=== PATIENT | male | born 1930 | race Caucasian/White ===

== ENCOUNTER 2017-04-21 19:42 | Inpatient (IN) | payer BC, OTHER ==
--- NOTE | 2017-04-21 19:50 | PDOC ---
Attending Attestation - Resident Resident Name: Abebe Martinez
[2017-04-21] MEDS ORDERED: morphine CARPU-JECT 4 MG/1 ML DISP.SYRIN IVPUSH ONE (20:24)
[2017-04-21] MEDS ORDERED: SODIUM CHLORIDE 0.9% 1000 ML INFUS.BAG IV ONE (20:24)
[2017-04-21] MEDS ORDERED: MORPHINE SULFATE 10 MG/1 ML *VIAL ONE (20:37)
[2017-04-21 20:41] LABS: HEMATOCRIT 43.6 % (35.4-49); HEMOGLOBIN 14.7 GM/dL (11.7-16.9); MCHC 33.6 g/dl (32.0-35.9); MEAN CELL VOLUME 101.2 fl (80-96); MEAN PLT VOLUME 9.4 fl (7.5-11.1); PLATELET COUNT 110 K/MM3 (134-434); RBC 4.31 M/mm3 (4.00-5.60); RDW 15.2 % (11.9-15.9); WHITE BLOOD COUNT 14.6 K/mm3 (4.0-10.0)
--- NOTE | 2017-04-21 20:58 | PDOC ---
History of Present Illness - General Chief Complaint: Weakness Stated Complaint: WEAKNESS Time Seen by Provider: 04/21/17 19:50 History Source: Patient, Family (Son at bedside) Exam Limitations: No Limitations - History of Present Illness Initial Comments: 04/21/17 20:53 The patient is an 86M with a PMH of a-fib on coumadin, HTN, HLD, and recently diagnosed stage 4 lung CA who presents with gradual onset of weakness. The patient was diagnosed with lung CA on 03/30/17. According to the son, he has lost 14 pounds since his last doctor's appointment in November. Recently, he has had decreased appetite and generalized weakness. He has not been able to eat and feels like he can no longer ambulate. Past History - Past Medical History Allergies/Adverse Reactions: Allergies Allergy/AdvReac Type Severity Reaction Status Date / Time No Known Allergies Allergy Verified 10/13/14 19:29 Home Medications: Ambulatory Orders Aspirin [Aspirin EC] 81 mg PO DAILY 10/13/14 Atorvastatin Ca [Lipitor] 20 mg PO HS 10/13/14 Folic Acid - 1 mg PO DAILY 10/13/14 Ramipril [Altace] 2.5 mg PO DAILY 10/13/14 Nabumetone [Relafen -] 750 mg PO DAILY 10/14/14 Acetaminophen [Tylenol .Regular Strength -] 650 mg PO Q6H PRN #0 tablet Warfarin Sodium [Coumadin] 5 mg PO HS 30 Days tablet 10/16/14 Cardiac Disorders: Yes (cardiac stent) COPD: No HTN: Yes Hypercholesterolemia: Yes - Immunization History Immunization Up to Date: Yes - Suicide/Smoking/Psychosocial Hx Smoking History: Former smoker Have you smoked in the past 12 months: No Number of Cigarettes Smoked Daily: 2 Information on smoking cessation initiated: No 'Breaking Loose' booklet given: 10/14/14 Hx Alcohol Use: Yes (occasional wine, no hard liquor) Drug/Substance Use Hx: No Substance Use Type: None Review of Systems - Review of Systems Able to Perform ROS?: Yes Is the patient limited Burkinan proficient: No Constitutional: Yes: Weakness. No: Chills, Fever HEENTM: No: Eye Pain, Blurred Vision, Double Vision Respiratory: No: Cough, Shortness of Breath Cardiac (ROS): No: Chest Pain, Lightheadedness, Palpitations ABD/GI: No: Nausea, Vomiting : No: Burning, Dysuria Musculoskeletal: No: Back Pain, Muscle Pain Integumentary: No: Erythema, Rash, Sweating Neurological: Yes: Weakness. No: Headache, Numbness, Tingling *Physical Exam - Vital Signs Last Vital Signs Temp Pulse Resp BP Pulse Ox 97.1 F L 125 H 28 H 149/108 93 L 04/21/17 19:55 04/21/17 19:55 04/21/17 19:55 04/21/17 19:55 04/21/17 19:55 - Physical Exam General Appearance: Yes: Thin. No: Appropriately Dressed, Apparent Distress HEENT: positive: Normal Voice, Hearing Grossly Normal Neck: negative: Tender, Rigidity Respiratory/Chest: positive: Lungs Clear, Normal Breath Sounds. negative: Chest Tender Cardiovascular: positive: Regular Rhythm, Regular Rate, S1, S2. negative: Diastolic Murmur, Systolic Murmur Gastrointestinal/Abdominal: positive: Flat, Soft. negative: Tender Extremity: negative: Coldness, Cyanosis, Swelling, Erythema Integumentary: positive: Dry, Warm. negative: Erythema, Clammy, Diaphoresis, Hives Neurologic: positive: Fully Oriented, Alert, Normal Mood/Affect, Normal Response. negative: Motor Strength 5/5, Abnormal Cranial NS, EOM Palsy ED Treatment Course - LABORATORY CBC & Chemistry Diagram: 04/25/17 06:15 04/25/17 06:15 - ADDITIONAL ORDERS Additional order review: 04/21/17 20:32 RBC 4.31 D MCV 101.2 H MCHC 33.6 RDW 15.2 MPV 9.4 D Neutrophils % No Result Required. Lymphocytes % No Result Required. - RADIOLOGY Radiology Studies Ordered: Category Date Time Status CHEST X-RAY PORTABLE* [RAD] Stat Radiology 04/21/17 20:24 Ordered - Medications Given in the ED: ED Medications Discontinued Medications Generic Name Dose Route Start Last Admin Trade Name Freq PRN Reason Stop Dose Admin Morphine Sulfate 2 mg 04/21/17 20:24 04/21/17 20:44 Morphine Injection - IVPUSH 04/21/17 20:25 2 mg ONCE ONE Administration Sodium Chloride 500 ml 04/21/17 20:24 04/21/17 20:44 Normal Saline - IV 04/21/17 20:25 500 ml ONCE ONE Administration Medical Decision Making - Medical Decision Making 04/21/17 23:47 The patient is an 86M who was recently dx with lung ca with mets who presents with diffuse weakness that has a gradual onset. I am concerned for mets to the brain, weakness 2/2 to decreased appetite, and failure to thrive. Dr. Ordonez has accepted admission for a tele bed. Will give 5 cardizem for HR control. DNR/DNI signed. *DC/Admit/Observation/Transfer Diagnosis at time of Disposition: Lung cancer, primary, with metastasis from lung to other site Qualifiers: Laterality: unspecified laterality Qualified Code(s): C34.90 - Malignant neoplasm of unspecified part of unspecified bronchus or lung - Discharge Dispostion Condition at time of disposition: Stable Admit: Yes - Referrals - Patient Instructions - Post Discharge Activity
[2017-04-21 20:59] LABS: ANION GAP 13 (8-16); BILIRUBIN,TOTAL 5.3 mg/dL (0.2-1.0); BLOOD UREA NITROGEN 69 mg/dL (7-18); CALCIUM 9.9 mg/dL (8.5-10.1); CHLORIDE 101 mmol/L (98-107); CO2 21 mmol/L (21-32); CREATININE 0.9 mg/dL (0.7-1.3); GLUCOSE,RANDOM 101 mg/dL (74-106); POTASSIUM 5.1 mmol/L (3.5-5.1); SGOT/AST 312 U/L (15-37); SGPT/ALT 288 U/L (12-78); SODIUM 135 mmol/L (136-145); TOT PROT 6.6 g/dl (6.4-8.2)
[2017-04-21 21:00] LABS: ALK PHOS 983 U/L (45-117)
[2017-04-21 21:34] LABS: PLATELET ESTIMATE SLT DECREASE
[2017-04-21 22:16] LABS: PROTHROMBIN TIME (PATIENT) 106.4 SEC (9.98-11.88)
[2017-04-21 22:17] LABS: INR 9.42 (0.82-1.09)
[2017-04-21] MEDS ORDERED: dilTIAZem HCL 50 MG/10 ML - 10 ML VIAL IVPUSH ONE (23:46)
--- NOTE | 2017-04-22 00:12 | PN ---
Teaching Attending Note Name of Resident: Shaylee Velázquez ATTENDING PHYSICIAN STATEMENT I saw and evaluated the patient. I reviewed the resident's note and discussed the case with the resident. I agree with the resident's findings and plan as documented. SUBJECTIVE: 84 M with Pmhx. of HTN, s/p Stent, Afib on Coumadin, tobacco abuse, Metastatic Lung Ca (not on any treatment) who presents with weakness and decreased Po intake. States he has not had bx. of his neck mass yet. Notes weight loss over course of month (unknown amt). States looking at food makes him nausous. Also notes weakness in bilateral Lower extremities. No chest pain, pressure or shortness of breath. OBJECTIVE: Physical: VS: Vital Signs Period Temp Pulse Resp BP Sys/Roach Pulse Ox Last 24 Hr 97.1 F 125 28 149/108 93 GEN: Cachetic,NAD, resting in bed, AA0X3 HEENT: NCAT,PERRL, throat without erythema or exudates, 5X4 cm hard R. Clavicular LN CARD: RRR S2, S2 RESP: CTAB ABD: BSx4, NTD to palpation EXT: - C/C/E MS +4/5 UE, MS 3/5 Bilateral LE RECTAL: Deferred by pt. CBCD WBC 14.6 K/mm3 (4.0-10.0) H D 04/21/17 20:32 RBC 4.31 M/mm3 (4.00-5.60) D 04/21/17 20:32 Hgb 14.7 GM/dL (11.7-16.9) D 04/21/17 20:32 Hct 43.6 % (35.4-49) D 04/21/17 20:32 MCV 101.2 fl (80-96) H 04/21/17 20:32 MCHC 33.6 g/dl (32.0-35.9) 04/21/17 20:32 RDW 15.2 % (11.9-15.9) 04/21/17 20:32 Plt Count 110 K/MM3 (134-434) L D 04/21/17 20:32 MPV 9.4 fl (7.5-11.1) D 04/21/17 20:32 CMP Sodium 135 mmol/L (136-145) L 04/21/17 20:32 Potassium 5.1 mmol/L (3.5-5.1) D 04/21/17 20:32 Chloride 101 mmol/L (98-107) 04/21/17 20:32 Carbon Dioxide 21 mmol/L (21-32) D 04/21/17 20:32 Anion Gap 13 (8-16) 04/21/17 20:32 BUN 69 mg/dL (7-18) H D 04/21/17 20:32 Creatinine 0.9 mg/dL (0.7-1.3) D 04/21/17 20:32 Creat Clearance w eGFR > 60 (>60) 04/21/17 20:32 Random Glucose 101 mg/dL (74-106) 04/21/17 20:32 Calcium 9.9 mg/dL (8.5-10.1) 04/21/17 20:32 Total Bilirubin 5.3 mg/dL (0.2-1.0) H D 04/21/17 20:32 AST 312 U/L (15-37) H D 04/21/17 20:32 ALT 288 U/L (12-78) H D 04/21/17 20:32 Alkaline Phosphatase 983 U/L (45-117) H D 04/21/17 20:32 Total Protein 6.6 g/dl (6.4-8.2) 04/21/17 20:32 Albumin 3.0 g/dl (3.4-5.0) L 04/21/17 20:32 CARDIAC ENZYMES Creatine Kinase 341 IU/L (39-308) H 04/21/17 20:32 Troponin I 0.03 ng/ml (0.00-0.05) D 04/21/17 20:32 CXR-Consolidative Opacity in RL base c/w pneumonia? Neoplasia Home Medications Medication Instructions Recorded Aspirin [Aspirin EC] 81 mg PO DAILY 10/13/14 Atorvastatin Ca [Lipitor] 20 mg PO HS 10/13/14 Folic Acid - 1 mg PO DAILY 10/13/14 Ramipril [Altace] 2.5 mg PO DAILY 10/13/14 Nabumetone [Relafen -] 750 mg PO DAILY 10/14/14 Acetaminophen [Tylenol .Regular 650 mg PO Q6H PRN #0 tablet 10/16/14 Strength -] Warfarin Sodium [Coumadin] 5 mg PO HS Days tablet 10/16/14 ASSESSMENT AND PLAN: 84 M with Pmhx. of HTN, s/p Stent, Afib on Coumadin, tobacco abuse, Metastatic Lung Ca (not on any treatment) who presents with weakness and decreased Po intake. 1.) Acute Hypoxic Respirtatory Failure - STAT ABG - Wells Score 3, but theraputic on Coumadin - 02 NC 2.) Sepsis - Due to Pneumonia - Ceftriaxone/Azithro - [place] Cx - Flu Swab- Negative - IVF - LA - Urine Ags 3.) Weakness - MRI BRAIN W. con - MRI T+L Spine ro compression - B12/ Folate/TSH - Neuro consult 4.) Decreased PO intake - Nutrition consult - Speech & Swallow Eval 5.) Metastatic Lung Ca - Onc. Consult - As outpt. need CTCAP for staging 6.) A-Fib - Hold Coumadin due to Supratheraputic INR - Echo if not done outpt. - C/W Cardizem 7.) Supratheraputic INR - Hold Coumadin - Trend CBC - Repeat Coags 8.) Transaminitis - Possible From Met. Ca 8.) HTN - C/W Home meds 9.) Dvt PPx - Supratheraputic INR Place in Med-Tele
[2017-04-22] MEDS ORDERED: dilTIAZem HCL 125 MG/25 ML - 25 ML VIAL ONE (00:16)
--- NOTE | 2017-04-22 00:39 | HP ---
CHIEF COMPLAINT: progressive weakness x 3 weeks PCP: Dr. Apodaca [facility] HISTORY OF PRESENT ILLNESS: 86 y/o M with PMH afib (on coumadin), HTN, HLD, recent diagnosis stage 4 lung CA (by Dr. Apodaca) who presents to the ED with gradually worsening weakness over the last three weeks. As per pt's son, starting on March 30, pt told him that he was not feeling well after he went to the bank. He had decreased energy and weakness in his upper and lower extremities, and started to have difficulty while ambulating with his walker. During this time, pt had a fourteen pound weight loss and decreased appetite. More recently, over the last two days, pt endorsed dizziness, SOB, intermittent productive cough (yellow sputum, without blood), increased urinary frequency with decreased void volume, brown-red urine and back pain. Denies LOCKHART, fever, night sweats, chills, chest pain, or changes in bowel function. Pt was diagnosed with stage 4 lung CA last week by Dr. Apodaca and had a Chest CT done at [facility]. He had not had a biopsy yet, and does not follow with a registered representative or oncologist yet. ER course was notable for: (1) WBC 14.6, (2) lactic acid 3.3 (3) AST 312, ALT 288, ALP 983 (4) CK 341 (5) INR 9.42 Recent Travel: none PAST MEDICAL HISTORY: afib (on coumadin), HTN, HLD, recent diagnosis stage 4 lung CA (by Dr. 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 Smoking: smoked 60-70 yrs 2 ppd, currently smokes 1-2 cigarettes/day Alcohol: socially Drugs: denies Family History: DM- brother, leg amputation Allergies No Known Allergies Allergy (Verified 10/13/14 19:29) HOME MEDICATIONS: Home Medications Medication Instructions Recorded Aspirin [Aspirin EC] 81 mg PO DAILY 10/13/14 Atorvastatin Ca [Lipitor] 20 mg PO HS 10/13/14 Folic Acid - 1 mg PO DAILY 10/13/14 Ramipril [Altace] 2.5 mg PO DAILY 10/13/14 Nabumetone [Relafen -] 750 mg PO DAILY 10/14/14 Acetaminophen [Tylenol .Regular 650 mg PO Q6H PRN #0 tablet 10/16/14 Strength -] Warfarin Sodium [Coumadin] 5 mg PO HS 30 Days tablet 10/16/14 REVIEW OF SYSTEMS CONSTITUTIONAL: +dizziness Absent: fever, chills, diaphoresis, generalized weakness, malaise, loss of appetite, weight change HEENT: Absent: rhinorrhea, nasal congestion, throat pain, throat swelling, difficulty swallowing, mouth swelling, ear pain, eye pain, visual changes CARDIOVASCULAR: Absent: chest pain, syncope, palpitations, irregular heart rate, lightheadedness , peripheral edema RESPIRATORY: +SOB, cough Absent: dyspnea with exertion, orthopnea, wheezing, stridor, hemoptysis GASTROINTESTINAL: Absent: abdominal pain, abdominal distension, nausea, vomiting, diarrhea, constipation, melena, hematochezia GENITOURINARY: Absent: dysuria, frequency, urgency, hesitancy, hematuria, flank pain, genital pain MUSCULOSKELETAL: +back pain Absent: myalgia, arthralgia, joint swelling, back pain, neck pain SKIN: Absent: rash, itching, pallor HEMATOLOGIC/IMMUNOLOGIC: Absent: easy bleeding, easy bruising, lymphadenopathy, frequent infections ENDOCRINE: +unexplained weight loss Absent: unexplained weight gain, heat intolerance, cold intolerance NEUROLOGIC: Absent: headache, focal weakness or paresthesias, dizziness, unsteady gait, seizure, mental status changes, bladder or bowel incontinence PSYCHIATRIC: Absent: anxiety, depression, suicidal or homicidal ideation, hallucinations. PHYSICAL EXAMINATION Vital Signs - 24 hr 04/21/17 19:55 Temperature 97.1 F L Pulse Rate 125 H Respiratory 28 H Rate Blood Pressure 149/108 O2 Sat by Pulse 93 L Oximetry (%) GENERAL: Cachectic gentleman, awake, alert, and fully oriented, in no acute distress. HEAD: Normal with no signs of trauma. EYES: Pupils equal, round and reactive to light, extraocular movements intact, sclera anicteric, conjunctiva clear. EARS, NOSE, THROAT: Ears normal, nares patent, oropharynx clear without exudates. Dry mucous membranes NECK: Normal range of motion, R sided clavicular lymphadenopathy LUNGS: decreased BS throughout (bases> apices). without wheezing, rhonchi or crackles. decreased inspiratory effort. mild accessory m. usage HEART: irregular rate and rhythm, normal S1 and S2 without murmur, rub or gallop. ABDOMEN: Nondistended, nontender to palpation. Significant hepatomegaly. normoactive bowel sounds, no guarding LOWER EXTREMITIES: 1+ posterior tibial pulses, warm, well-perfused. No calf tenderness. No peripheral edema. NEUROLOGICAL: Cranial nerves II-XII intact. PSYCHIATRIC: positive affect Laboratory Results 04/21/17 04/21/17 04/21/17 20:32 20:32 20:32 WBC 14.6 H D RBC 4.31 D Hgb 14.7 D Hct 43.6 D MCV 101.2 H MCH 34.0 H MCHC 33.6 RDW 15.2 Plt Count 110 L D MPV 9.4 D Neutrophils % No Result Required. Neutrophils % (Manual) 81.0 Band Neutrophils % 6.0 Lymphocytes % No Result Required. Lymphocytes % (Manual) 10.0 Monocytes % (Manual) 2 L Eosinophils % (Manual) 0.0 Basophils % (Manual) 0.0 Metamyelocytes 1 Platelet Estimate Slt decrease Platelet Comment No clumping noted PT with INR 106.40 H INR 9.42 H* D Sodium Alkaline Phosphatase Creatine Kinase 341 H Creatine Kinase Index 0.8 CK-MB (CK-2) 3.038 Troponin I 0.03 D Total Protein 04/21/17 20:32 INR Sodium 135 L Potassium 5.1 D Chloride 101 Carbon Dioxide 21 D Anion Gap 13 BUN 69 H D Creatinine 0.9 D Creat Clearance w eGFR > 60 Random Glucose 101 Calcium 9.9 Total Bilirubin 5.3 H D AST 312 H D ALT 288 H D Alkaline Phosphatase 983 H D Creatine Kinase Total Protein 6.6 Albumin 3.0 L Microbiology 04/22/17 00:30 Nasopharyngeal Swab Influenza Types A,B Antigen (JUDI) - Final 04/22/17 00:30 Nasopharyngeal Swab - Final Blood cx- pending Urine cx- pending EKG -afib with RVR, vent rate 125 bpm, Qtc 474 ms Radio CXR: consolidative opacity in RLL, possible PNA ASSESSMENT/PLAN: 86 y/o M with PMH afib (on coumadin), HTN, HLD, recent diagnosis stage 4 lung CA (by Dr. Apodaca) who presents to the ED with gradually worsening weakness over the last three weeks. Pt admitted to tele for weakness 2/2 lung CA, r/o brain and spine mets #Weakness 2/2 lung CA, r/o brain and spine mets -F/u brain MRI w/contrast -F/u thoracic and lumbar MRI to r/o compression. If compression, may need steroids -F/u B12, Folate, TSH -Neuro Consult- Dr. Cook -Dietary consult- d/t decreased appetite -Speech and swallow consult #Acute hypoxic respiratory failure most likely 2/2 Lung CA, possible PNA -F/u stat ABG -Continue on NC 02 #Metastatic lung CA -recent dx stage 4 lung CA, has not had bx, does not have oncologist -Onc consult- Dr. Silva -CT Chest, abd pelvis for staging #Sepsis 2/2 CAP -leukocytosis 14.6, tachycardic 125HR, tachypneic RR28, lactic acid 3.3 -Started on ceftriaxone 1g IVPB qd, Azithromycin 500mg IVPB qd, to cover for CAP -Pt with prolonged Qtc 474, check EKG in AM before next Azithro dose -F/u urine cx, blood cx, Urine Ag for Legionella #Afib with supratherapeutic INR (9.42) -Holding coumadin -F/u PTT, PT/INR -Lopressor 5mg IVP q4h PRN rate control if HR >110 -Cardio consult- Dr. Álvarez #HTN- controlled -Continue ramipril 2.5mg daily #HLD -Continue lipitor 20mg PO HS #PPX DVT: supratherapeutic INR, SCD's #F/E/N IV NS 75 cc/hr Monitor electrolytes Sodium controlled diet #Dispo Tele monitoring Visit type - Emergency Visit Emergency Visit: Yes ED Registration Date: 04/22/17 Care time: The patient presented to the Emergency Department on the above date and was hospitalized for further evaluation of their emergent condition. - New Patient This patient is new to me today: Yes Date on this admission: 04/22/17 - Critical Care Critical Care patient: No
[2017-04-22] MEDS ORDERED: CEFTRIAXONE 1 G/50 ML PREMIX 50 ML IVPB SCH (01:30)
[2017-04-22] MEDS ORDERED: AZITHROMYCIN IVPB 500 MG in DEXTROSE 5%-WATER - 250 ML IVPB SCH (01:30)
[2017-04-22 01:37] LABS: URINE APPEARANCE CLEAR; URINE BILIRUBIN NEGATIVE (NEGATIVE); URINE BLOOD NEGATIVE (NEGATIVE); URINE COLOR AMBER; URINE GLUCOSE (UA) NEGATIVE (NEGATIVE); URINE KETONE NEGATIVE (NEGATIVE); URINE LEUK ESTERASE NEGATIVE (NEGATIVE); URINE NITRITE NEGATIVE (NEGATIVE); URINE PROTEIN NEGATIVE (NEGATIVE); URINE UROBILINOGEN 4.0 E.U/dl mg/dL (0.2-1.0)
[2017-04-22] MEDS ORDERED: AZITHROMYCIN IVPB 250 ML IVPB ONE (01:47)
[2017-04-22] MEDS ORDERED: ONDANSETRON 4 MG/2 ML VIAL ONE (01:47)
[2017-04-22] MEDS ORDERED: ACETAMINOPHEN INJECTION 100 ML IVPB ONE (01:47)
[2017-04-22] MEDS ORDERED: CEFTRIAXONE 1 GM/50 ML BAG ONE (01:48)
[2017-04-22] MEDS: SODIUM CHLORIDE 1,000 ML IV SCH (01:55)
[2017-04-22 05:19] LABS: ARTERIAL BLD GAS O2 SATURATION 94.6 % (90-98.9); ARTERIAL BLOOD GAS BASE EXCESS -1.4 meq/l (-2-2); ARTERIAL BLOOD GAS PCO2 32.6 mmHg (35-45); ARTERIAL BLOOD GAS PO2 75.1 mmHg (68-100); ARTERIAL BLOOD GAS pH 7.44 (7.35-7.45)
[2017-04-22 05:20] LABS: ALLENS TEST POSITIVE
[2017-04-22 07:58] LABS: HEMATOCRIT 40.7 % (35.4-49); HEMOGLOBIN 13.3 GM/dL (11.7-16.9); MCH 33.2 pg (25.7-33.7); MCHC 32.6 g/dl (32.0-35.9); MEAN CELL VOLUME 101.9 fl (80-96); MEAN PLT VOLUME 9.2 fl (7.5-11.1); PLATELET COUNT 96 K/MM3 (134-434); RBC 3.99 M/mm3 (4.00-5.60); RDW 15.5 % (11.9-15.9); WHITE BLOOD COUNT 15.9 K/mm3 (4.0-10.0)
[2017-04-22 08:20] LABS: PROTHROMBIN TIME (PATIENT) 98.6 SEC (9.98-11.88)
[2017-04-22 08:43] LABS: CHLORIDE 99 mmol/L (98-107); POTASSIUM 4.9 mmol/L (3.5-5.1); SODIUM 135 mmol/L (136-145)
[2017-04-22 08:48] LABS: ANION GAP 13 (8-16); BLOOD UREA NITROGEN 67 mg/dL (7-18); CALCIUM 9.7 mg/dL (8.5-10.1); CO2 23 mmol/L (21-32); GLUCOSE,RANDOM 119 mg/dL (74-106)
[2017-04-22] MEDS: FOLIC ACID 1 MG TABLET (FP) PO SCH (09:16)
[2017-04-22] MEDS: RAMIPRIL 2.5 MG CAPSULE (FP) PO SCH (09:16)
[2017-04-22 09:24] LABS: INR 8.73 (0.82-1.09)
[2017-04-22] MEDS ORDERED: NABUMETONE 750 MG TABLET PO SCH (10:00)
[2017-04-22] MEDS: ASPIRIN COATED 81 MG TABLET.EC PO SCH (10:28)
--- NOTE | 2017-04-22 10:32 | CONSULT ---
Admitting History and Physical - Primary Care Physician PCP: Joanne Caldera - Admission History of Present Illness: per emr: 86 y/o M with PMH afib (on coumadin), HTN, HLD, recent diagnosis stage 4 lung CA (by Dr. Apodaca) who presents to the ED with gradually worsening weakness over the last three weeks. As per pt's son, starting on March 30, pt told him that he was not feeling well after he went to the bank. He had decreased energy and weakness in his upper and lower extremities, and started to have difficulty while ambulating with his walker. During this time, pt had a fourteen pound weight loss and decreased appetite. More recently, over the last two days, pt endorsed dizziness, SOB, intermittent productive cough (yellow sputum, without blood), increased urinary frequency with decreased void volume, brown-red urine and back pain. Denies LOCKHART, fever, night sweats, chills, chest pain, or changes in bowel function. Pt was diagnosed with stage 4 lung CA last week by Dr. Apodaca and had a Chest CT done at [facility]. He had not had a biopsy yet, and does not follow with a data entry analyst or oncologist yet. Present smoker. Drinks wine socially. Pt reports onset of dysphagia x 3 weeks ago, coughing while he eats and especially while he drinks. 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 History - Admission Reason For Visit: PRIMARY MALIGNANT NEOPLASM OF LUNG - Diagnostics X-ray: Report Reviewed - General Mental Status: Alert and Oriented (grossly), Awake and Alert, Able to Follow Commands Attention: Intact Ability to Follow Directions: Fair Head/Neck Control: Fair - Hearing Hearing: Functional Hearing Aide: No With Patient: No Speech Evaluation - Communication Primary Language: MAURITANIAN Communication: Yes: Within Normal Limits - Speech Production Able to Make Needs Known: Yes: WNL Intelligibility: Yes: WNL - Speech Characteristics Voice Loudness: Mildly Soft/Quiet Voice Pitch: Yes: Normal Voice Phonatory-based Quality: Yes: Vocal Wetness (intermittent. Aspiration?) Speech Pattern: Normal Speech Clarity: < 100% Nasal Resonance: Normal Articulation: Yes: Precise Rate of Speech: Intact - Language/Auditory Comprehension Observation: Able to respond to yes/no queries: Yes, Comprehends Conversational Speech: Yes, Benefits from Increased Volume of Speech: Yes - Language/Verbal Expression Able to Respond to Simple Queries: Yes: WNL Able to Communicate Wants and Needs: Yes: WNL Functional Communication Status: Yes: WNL - Swallow Evaluation/Bedside Assessment Current Nutritional Intake: Regular, Thin Liquids Oral Secretions: Yes: Tongue Coated (Coated white. Needs mouth care/r/o thrush.) Dentition: Yes: Edentulous Facial Symmetry at Rest: Symmetrical Facial Symmetry on Retraction: Symmetrical Against Resistance Opening: Normal Against Resistance Closing: Normal Pucker Lips: Normal Smile: Normal Lingual Movement: Normal, Symmetric Lingual Speed of Movement: Normal Lingual Movement Strgth Against Opposition: Normal Lingual Movement Characteristics: Normal Velopharyngeal Movement: Normal Laryngeal Movement: Labored,delay initiation Bolus Size: WFL Labial Seal: WFL Chewing: WFL Oral Prep Time: WFL A-P Transit: WFL Pocketing: None Timing of Swallow: Delayed Coughing/Throat Clear: Yes (intermittent, on thin liquid) Recommendations - Speech Evaluation, Impression/Plan Impression: Recent dx of Stage IV Lung Cancer. Coughing on thin liquid x 3 weeks. PNA. Poor appetite. Only wants sips of water. Swallow is delayed but fairly brisk once triggered.Vocal wetness intermittently. Weak. DNR/DNI. Grossly oriented and verbal. - Dysphagia Impressions/Plan Dysphagia Impressions: Ongoing Evaluation, Suspect Aspiration *Silent aspiration: cannot be R/O at bedside Dysphagia Treatment Plan: Small Bites, Chin Tuck/Down, Safe Rate, 1/2 tsp. at a time, Elevate HOB during feed Recommendations: Modified Barium Swallow, Other (Mouth care. r/o Thrush.) - Recommendations Diet Consistency: Dysphagia Minced, 1 - 2 Soft Items Liquids: [place] Thick, Other (Trial single sips of thin water after mouth care, between meals.) Supplement: Magic Cup, Other (Ensure Compact? Family concerned about Vit K level with Coumadin.)
--- NOTE | 2017-04-22 10:57 | EKG ---
Test Reason : Blood Pressure : / mmHG Vent. Rate : 120 BPM Atrial Rate : 136 BPM P-R Int : 000 ms QRS Dur : 094 ms QT Int : 314 ms P-R-T Axes : 000 012 037 degrees QTc Int : 443 ms ATRIAL FIBRILLATION WITH RAPID VENTRICULAR RESPONSE INCOMPLETE RIGHT BUNDLE BRANCH BLOCK NONSPECIFIC ST AND T WAVE ABNORMALITY ABNORMAL ECG WHEN COMPARED WITH ECG OF 21-APR-2017 20:10, T WAVE INVERSION NO LONGER EVIDENT IN LATERAL LEADS Confirmed by NAHEED JEFFERSON, GERSON ([id number]) on 04/22/2017 10:57:18 AM Referred By: Confirmed By:GERSON FARFAN MD
--- NOTE | 2017-04-22 10:59 | EKG ---
Test Reason : Blood Pressure : / mmHG Vent. Rate : 135 BPM Atrial Rate : 113 BPM P-R Int : 000 ms QRS Dur : 090 ms QT Int : 316 ms P-R-T Axes : 000 035 174 degrees QTc Int : 474 ms ATRIAL FIBRILLATION WITH RAPID VENTRICULAR RESPONSE ANTERIOR INFARCT , AGE UNDETERMINED ABNORMAL ECG WHEN COMPARED WITH ECG OF 14-OCT-2014 00:18, ATRIAL FIBRILLATION HAS REPLACED SINUS RHYTHM VENT. RATE HAS INCREASED BY 63 BPM NONSPECIFIC T WAVE ABNORMALITY NOW EVIDENT IN INFERIOR LEADS T WAVE INVERSION NOW EVIDENT IN LATERAL LEADS Confirmed by GERSON FARFAN MD ([id number]) on 04/22/2017 10:59:23 AM Referred By: Confirmed By:GERSON FARFAN MD
[2017-04-22] MEDS: METOPROLOL TARTRATE 5 MG/5 ML VIAL IVPUSH PRN (12:10)
--- NOTE | 2017-04-22 12:25 | PN ---
<Philip Khan - Last Filed: 04/22/17 13:41> Physical Exam: SUBJECTIVE: Patient seen and examined at bedside. Patient's son is in the room with the patient and is answering the majority of the questions. Patient's son states that patient was recently diagnosed with cancer but did not know the stage. He states that he has been week for several months and losing weight ( 15lbs over this time). Reports not eating. Reports shortness of breath over the last 2 days. OBJECTIVE: Vital Signs Period Temp Pulse Resp BP Sys/Roach Pulse Ox Last 24 Hr 97.1 F-98.4 F 109-125 20-28 126-150/64-108 92-98 GENERAL: The patient is awake, alert, and fully oriented, in mild distress HEAD: Normal with no signs of trauma. temporal wasting and maxillary wasting noted. EYES: PERRL, extraocular movements intact, sclera anicteric, conjunctiva clear. No ptosis. NECK: Trachea midline, full range of motion, supple. LUNGS: Bilateral crackles noted on exam - more on the R lower lobe. patient on 2L NC HEART: Patient tachycardic, irregular rhythm, S1, S2 without murmur, rub or gallop. ABDOMEN: hard abdomen palpated in the R upper quadrant, nontender, nondistended , normoactive bowel sounds, no guarding, no rebound, no hepatosplenomegaly, no masses. EXTREMITIES: 2+ pulses, warm, well-perfused, no edema. NEUROLOGICAL: Cranial nerves II through XII grossly intact. slightly slurred speech. gait not observed. PSYCH: Normal mood, normal affect. SKIN: Warm, dry, normal turgor, no rashes or lesions noted Laboratory Results - last 24 hr 04/21/17 04/21/17 04/21/17 20:32 20:32 20:32 WBC 14.6 H D RBC 4.31 D Hgb 14.7 D Hct 43.6 D MCV 101.2 H MCH 34.0 H MCHC 33.6 RDW 15.2 Plt Count 110 L D MPV 9.4 D Neutrophils % No Result Required. Neutrophils % (Manual) 81.0 Band Neutrophils % 6.0 Lymphocytes % No Result Required. Lymphocytes % (Manual) 10.0 Monocytes % (Manual) 2 L Eosinophils % (Manual) 0.0 Basophils % (Manual) 0.0 Metamyelocytes 1 Platelet Estimate Slt decrease Platelet Comment No clumping noted PT with INR 106.40 H INR 9.42 H* D Anticoagulation Therapy Puncture Site ABG pH ABG pCO2 at Pt Temp ABG pO2 at Pt Temp ABG HCO3 ABG O2 Sat (Measured) ABG O2 Content ABG Base Excess Roque Test O2 Delivery Device Oxygen Flow Rate Vent Mode Vent Rate Mechanical Rate Pressure Support Vent Sodium Potassium Chloride Carbon Dioxide Anion Gap BUN Creatinine Creat Clearance w eGFR Random Glucose Lactic Acid Calcium Total Bilirubin AST ALT Alkaline Phosphatase Creatine Kinase 341 H Creatine Kinase Index 0.8 CK-MB (CK-2) 3.038 Troponin I 0.03 D Total Protein Albumin Urine Color Urine Appearance Urine pH Ur Specific [place] Urine Protein Urine Glucose (UA) Urine Ketones Urine Blood Urine Nitrite Urine Bilirubin Urine Urobilinogen Ur Leukocyte Esterase 04/21/17 04/22/17 04/22/17 20:32 01:20 01:20 WBC RBC Hgb Hct MCV MCH MCHC RDW Plt Count MPV Neutrophils % Neutrophils % (Manual) Band Neutrophils % Lymphocytes % Lymphocytes % (Manual) Monocytes % (Manual) Eosinophils % (Manual) Basophils % (Manual) Metamyelocytes Platelet Estimate Platelet Comment PT with INR INR Anticoagulation Therapy Puncture Site ABG pH ABG pCO2 at Pt Temp ABG pO2 at Pt Temp ABG HCO3 ABG O2 Sat (Measured) ABG O2 Content ABG Base Excess Roque Test O2 Delivery Device Oxygen Flow Rate Vent Mode Vent Rate Mechanical Rate Pressure Support Vent Sodium 135 L Potassium 5.1 D Chloride 101 Carbon Dioxide 21 D Anion Gap 13 BUN 69 H D Creatinine 0.9 D Creat Clearance w eGFR > 60 Random Glucose 101 Lactic Acid 3.3 H* Calcium 9.9 Total Bilirubin 5.3 H D AST 312 H D ALT 288 H D Alkaline Phosphatase 983 H D Creatine Kinase Creatine Kinase Index CK-MB (CK-2) Troponin I Total Protein 6.6 Albumin 3.0 L Urine Color Angela Urine Appearance Clear Urine pH 5.0 Ur Specific [place] 1.021 Urine Protein Negative Urine Glucose (UA) Negative Urine Ketones Negative Urine Blood Negative Urine Nitrite Negative Urine Bilirubin Negative Urine Urobilinogen 4.0 e.u/dl Ur Leukocyte Esterase Negative 04/22/17 04/22/17 04/22/17 05:05 07:10 07:10 WBC 15.9 H RBC 3.99 L Hgb 13.3 Hct 40.7 MCV 101.9 H MCH 33.2 MCHC 32.6 RDW 15.5 Plt Count 96 L MPV 9.2 Neutrophils % No Result Required. Neutrophils % (Manual) Band Neutrophils % Lymphocytes % No Result Required. Lymphocytes % (Manual) Monocytes % (Manual) Eosinophils % (Manual) Basophils % (Manual) Metamyelocytes Platelet Estimate Platelet Comment PT with INR 98.60 H INR 8.73 H* Anticoagulation Therapy No Result Required. Puncture Site Right radial ABG pH 7.44 ABG pCO2 at Pt Temp 32.6 L ABG pO2 at Pt Temp 75.1 ABG HCO3 21.5 L ABG O2 Sat (Measured) 94.6 ABG O2 Content 17.5 ABG Base Excess -1.4 Roque Test Positive O2 Delivery Device N/c Oxygen Flow Rate 2lpm Vent Mode No Result Required. Vent Rate No Result Required. Mechanical Rate No Result Required. Pressure Support Vent No Result Required. Sodium Potassium Chloride Carbon Dioxide Anion Gap BUN Creatinine Creat Clearance w eGFR Random Glucose Lactic Acid Calcium Total Bilirubin AST ALT Alkaline Phosphatase Creatine Kinase Creatine Kinase Index CK-MB (CK-2) Troponin I Total Protein Albumin Urine Color Urine Appearance Urine pH Ur Specific [place] Urine Protein Urine Glucose (UA) Urine Ketones Urine Blood Urine Nitrite Urine Bilirubin Urine Urobilinogen Ur Leukocyte Esterase 04/22/17 04/22/17 07:10 07:10 WBC RBC Hgb Hct MCV MCH MCHC RDW Plt Count MPV Neutrophils % Neutrophils % (Manual) Band Neutrophils % Lymphocytes % Lymphocytes % (Manual) Monocytes % (Manual) Eosinophils % (Manual) Basophils % (Manual) Metamyelocytes Platelet Estimate Platelet Comment PT with INR INR Anticoagulation Therapy Puncture Site ABG pH ABG pCO2 at Pt Temp ABG pO2 at Pt Temp ABG HCO3 ABG O2 Sat (Measured) ABG O2 Content ABG Base Excess Roque Test O2 Delivery Device Oxygen Flow Rate Vent Mode Vent Rate Mechanical Rate Pressure Support Vent Sodium 135 L Potassium 4.9 Chloride 99 Carbon Dioxide 23 Anion Gap 13 BUN 67 H Creatinine 1.0 Creat Clearance w eGFR Random Glucose 119 H Lactic Acid Calcium 9.7 Total Bilirubin AST ALT Alkaline Phosphatase Creatine Kinase Creatine Kinase Index CK-MB (CK-2) Troponin I 0.02 D Total Protein Albumin Urine Color Urine Appearance Urine pH Ur Specific [place] Urine Protein Urine Glucose (UA) Urine Ketones Urine Blood Urine Nitrite Urine Bilirubin Urine Urobilinogen Ur Leukocyte Esterase Active Medications Generic Name Dose Route Start Last Admin Trade Name Freq PRN Reason Stop Dose Admin Aspirin 81 mg 04/22/17 10:00 04/22/17 10:28 Ecotrin - PO 81 mg DAILY SUE Administration Atorvastatin Calcium 20 mg 04/22/17 22:00 Lipitor - PO HS SUE Folic Acid 1 mg 04/22/17 10:00 04/22/17 09:16 Folic Acid - PO 1 mg DAILY SUE Administration CEFTRIAXONE 1 G/50 ML PREMIX 50 mls @ 100 mls/hr 04/22/17 01:30 04/22/17 01: 54 Ceftriaxone 1 Gm-D5w Bag IVPB 100 mls/hr HS SUE Administration Sodium Chloride 1,000 mls @ 75 mls/hr 04/22/17 01:30 04/22/17 01:55 Normal Saline - IV 75 mls/hr ASDIR SUE Administration Azithromycin 500 mg/ Dextrose 250 mls @ 250 mls/hr 04/22/17 01:30 04/22/17 01 :55 IVPB 250 mls/hr HS SUE Administration Metoprolol Tartrate 5 mg 04/22/17 01:41 04/22/17 12:10 Lopressor Injection - IVPUSH 5 mg Q4H PRN Administration HYPERTENSION Ramipril 2.5 mg 04/22/17 10:00 04/22/17 09:16 Altace - PO 2.5 mg DAILY SUE Administration EKG -afib with RVR, vent rate 125 bpm, Qtc 474 ms Radio CXR: consolidative opacity in RLL, likely pneumonia ASSESSMENT/PLAN: 86 y/o M with PMH afib (on coumadin), HTN, HLD, recent diagnosis of lung CA ( by Dr. Apodaca) who presents to the ED with gradually worsening weakness over the last three weeks and poor oral intake as well as back pain #Weakness: likely 2/2 metastatic lung CA, r/o brain and spine mets -Brain MRI wasn't able to be performed due to family not knowing type of stents patient has -consult Dr. Silva appreciated -Neuro Consult- Dr. Cook appeciated -Speech and swallow consult for modified barium swallow #Acute hypoxic respiratory failure 2/2 pneumonia: possible pneumonia -ABG normal -Continue on nasal cannula 2 liters -leukocytosis 14.6, tachycardic 125HR, tachypneic RR28, lactic acid 3.3 -continue ceftriaxone and azithromycin -f/u cultures #Atrial fibrillation with supratherapeutic INR (on admission 9.42): improved to 8.73 -Holding coumadin for now -repeat INR in AM -Lopressor 5mg IVP q4h PRN rate control if HR >110 -Cardio consult appreciated #Hypertension: controlled -Continue ramipril 2.5mg daily #Hyperlipidemia -Continue lipitor 20mg PO HS #Prophylaxis DVT: supratherapeutic INR, SCD's #FEN IV NS 75 cc/hr Replete lytes in AM Sodium controlled diet #Disposition -Continue to monitor on Tele DNR/DNI Visit type - Emergency Visit Emergency Visit: Yes ED Registration Date: 04/22/17 Care time: The patient presented to the Emergency Department on the above date and was hospitalized for further evaluation of their emergent condition. - New Patient This patient is new to me today: Yes Date on this admission: 04/22/17 - Critical Care Critical Care patient: No <Joanne Caldera - Last Filed: 04/22/17 19:27> Physical Exam: Patient seen and examined with the resident , agree with the plan. Daughter at bedside.
--- NOTE | 2017-04-22 12:34 | CON.CARD ---
Consult Consult Specialty:: Cardioogy Reason for Consultation:: Afib - History of Present Illness History of Present Illness: 86 y/o M with PMH afib (on coumadin), HTN, HLD, stage 4 lung CA came to the ED with weakness over the last three weeks. During this time, pt had a fourteen pound weight loss and decreased appetite. More recently, over the last two days , dizziness, SOB, intermittent productive cough (yellow sputum, without blood), increased urinary frequency with decreased void volume, brown-red urine and back pain. Denies LOCK[place], fever, night sweats, chills, chest pain, or changes in bowel function. 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 Home Medications - Allergies Allergies/Adverse Reactions: Allergies Allergy/AdvReac Type Severity Reaction Status Date / Time No Known Allergies Allergy Verified 10/13/14 19:29 - Home Medications Home Medications: Ambulatory Orders Aspirin [Aspirin EC] 81 mg PO DAILY 10/13/14 Atorvastatin Ca [Lipitor] 20 mg PO HS 10/13/14 Folic Acid - 1 mg PO DAILY 10/13/14 Ramipril [Altace] 2.5 mg PO DAILY 10/13/14 Nabumetone [Relafen -] 750 mg PO DAILY 10/14/14 Acetaminophen [Tylenol .Regular Strength -] 650 mg PO Q6H PRN #0 tablet Warfarin Sodium [Coumadin] 5 mg PO HS 30 Days tablet 10/16/14 Family Disease History - Family Disease History Family Disease History: Other: Brother (DM; 3 brothers) Review of Systems - Review of Systems Constitutional: denies: Chills, Diaphoresis Eyes: reports: No Symptoms HENT: reports: No Symptoms Neck: reports: No Symptoms Cardiovascular: reports: Shortness of Breath. denies: Chest Pain, Palpitations Respiratory: reports: Exercise Intolerance Vital Signs: Vital Signs Temperature 97.8 F 04/22/17 10:00 Pulse Rate 121 H 04/22/17 12:10 Respiratory Rate 20 04/22/17 10:00 Blood Pressure 126/64 04/22/17 12:10 O2 Sat by Pulse Oximetry (%) 92 L 04/22/17 09:00 Constitutional: Yes: Calm, Cachectic Eyes: Yes: Conjunctiva Clear, EOM Intact HENT: Yes: Atraumatic, Normocephalic Neck: Yes: Supple, Trachea Midline Respiratory: Yes: Regular, Wheezes Gastrointestinal: Yes: Normal Bowel Sounds, Soft JVD: No Carotid Bruit: No Heart Sounds: Yes: S1, S2 Murmur: No: Systolic Murmur, Diastolic Murmur - Other Data Labs, Other Data: CBC, BMP 04/22/17 07:10 04/22/17 07:10 INR, PTT INR 8.73 (0.82-1.09) H* 04/22/17 07:10 Troponin, BNP 04/21/17 04/22/17 20:32 07:10 Troponin I 0.03 D 0.02 D Troponin, BNP 04/21/17 04/22/17 20:32 07:10 Troponin I 0.03 D 0.02 D Afib with rapid response no STT changes. poor R wave progression Problem List - Problems (1) Afib Code(s): I48.91 - UNSPECIFIED ATRIAL FIBRILLATION Assessment/Plan Chronic Afib with intermittently elevated HR. Supratherapeutic INR Add Metoprolol 25 mg BID. Hold ASA until INR improves. Will follow
[2017-04-22 13:47] LABS: PLATELET ESTIMATE DECREASED
--- NOTE | 2017-04-22 14:03 | CONSULT ---
Consult - text type - Consultation Consultation Note: NEUROLOGY CONSULTATION is greatly appreciated: Events reviewed, Patient examined with son at bedside who provides history. 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 He is maintained on atorvastatin, ramipril, coumadin. Recently diagnosed with metatatic lung Ca arising from RLL. Now admitted after 6 weeks of progressive weakness in both legs and loss of bladder control. Son drove him to work in February. Unable to work since March. Walked with walker x 2 weeks. Can't lift legs off bed x 1 week or support his weight. 2 weeks of progressive loss of bladder control, now in diaper. LORAINE: Thin. No bruits. Cor irreg. NEURO: MS/speech: slow to respond but O x 3. CN II-XII: normal including gag Motor: No drift. Normal grasp. Hip flexion 2/5 (!!) but ankle dorsiflexion 4+/5. Areflexic in legs. Plantars equivocal. Coord: No obvious FTN dystaxia. Sensory: Decreased vibration both feet to the mid-calves. Gait: Cannot bear weight. IMP:Progressive Bicrural weakness and incontinence. R/O Myelopathy especially Cauda Equina Syndrome due to epidural metastases. R/O Myopathy R/O Lambert-Eaton Myasthenic syndrome secondary to small cell lung Ca. SUGGEST: Agree with MRI scans of the barain and Lumbar spine as ordered. I will add MRI of Thoracic and cervical segments, today if possible. Check CK, TSH, B12, LEMS antibodies. Review prior metastatic workup from [facility] (I have two calls into Dr. Apodaca). Oncology consultation. Thank you very much, Otf Cook MD
--- NOTE | 2017-04-22 14:37 | PN ---
Progress Note, Physician Chief Complaint: ID Progressive downhill decline since February losing weight weakness now diagnosis of Lung cancer told metastatic to liver as per his daughter Asked to see for pneumonia - Current Medication List Current Medications: Active Medications Aspirin (Ecotrin -) 81 mg PO DAILY [facility] Last Admin: 04/22/17 10:28 Dose: 81 mg Atorvastatin Calcium (Lipitor -) 20 mg PO [facility] Folic Acid (Folic Acid -) 1 mg PO DAILY [facility] Last Admin: 04/22/17 09:16 Dose: 1 mg CEFTRIAXONE 1 G/50 ML PREMIX (Ceftriaxone 1 Gm-D5w Bag) 50 mls @ 100 mls/hr IVPB HS [facility] Last Admin: 04/22/17 01:54 Dose: 100 mls/hr Sodium Chloride (Normal Saline -) 1,000 mls @ 75 mls/hr IV ASDIR [facility] Last Admin: 04/22/17 01:55 Dose: 75 mls/hr Azithromycin 500 mg/ Dextrose 250 mls @ 250 mls/hr IVPB HS [facility] Last Admin: 04/22/17 01:55 Dose: 250 mls/hr Metoprolol Tartrate (Lopressor Injection -) 5 mg IVPUSH Q4H PRN PRN Reason: HYPERTENSION Last Admin: 04/22/17 12:10 Dose: 5 mg Morphine Sulfate (Morphine Injection -) 1 mg IVPUSH Q6H PRN PRN Reason: PAIN LEVEL 6-10 Ramipril (Altace -) 2.5 mg PO DAILY [facility] Last Admin: 04/22/17 09:16 Dose: 2.5 mg - Objective Vital Signs: Vital Signs Temperature 97.8 F 04/22/17 10:00 Pulse Rate 121 H 04/22/17 12:10 Respiratory Rate 20 04/22/17 10:00 Blood Pressure 126/64 04/22/17 12:10 O2 Sat by Pulse Oximetry (%) 92 L 04/22/17 09:00 Constitutional: Yes: Cachectic HENT: Yes: WNL, Atraumatic Neck: Yes: WNL, Supple Cardiovascular: Yes: Regular Rate and Rhythm, S1, S2. No: Murmur Respiratory: Yes: Rales Gastrointestinal: Yes: Soft. No: Tenderness Labs: CBC, BMP 04/22/17 07:10 04/22/17 07:10 INR, PTT INR 8.73 (0.82-1.09) H* 04/22/17 07:10 Problem List - Problems (1) Pneumonia Code(s): J18.9 - PNEUMONIA, UNSPECIFIED ORGANISM (2) Lung cancer, primary, with metastasis from lung to other site Code(s): C34.90 - MALIGNANT NEOPLASM OF UNSP PART OF UNSP BRONCHUS OR LUNG Qualifiers: Laterality: unspecified laterality Qualified Code(s): C34.90 - Malignant neoplasm of unspecified part of unspecified bronchus or lung Assessment/Plan Laboratory Tests 04/21/17 04/21/17 04/22/17 20:32 20:32 07:10 WBC 15.9 H Hgb 13.3 Hct 40.7 Plt Count 110 L D 96 L Neutrophils % (Manual) 81.0 Band Neutrophils % 6.0 Lymphocytes % (Manual) 10.0 Monocytes % (Manual) 2 L BUN Creatinine Total Bilirubin 5.3 H D AST 312 H D ALT 288 H D Alkaline Phosphatase 983 H D 04/22/17 07:10 WBC Hgb Hct Plt Count Neutrophils % (Manual) Band Neutrophils % Lymphocytes % (Manual) Monocytes % (Manual) BUN 67 H Creatinine 1.0 Total Bilirubin AST ALT Alkaline Phosphatase Assessment Working diagnosis is metastatic lung cancer with possible liver mets Complicating pneumonia RLL Consider aspiration etiology Plan Unasyn 1.5 grs q 6 h Discuss with PMD his recent work up so as not to duplicate efforts Destin JEFFERSON
--- NOTE | 2017-04-22 14:43 | CONSULT ---
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 But from the past three weeks family noticed a progressive decline in his po intake, ability to walk to a point he is bed-ridden prompting the family to be brought to the ER. Pt seen and examined. 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 Home Medications - Allergies Allergies/Adverse Reactions: Allergies Allergy/AdvReac Type Severity Reaction Status Date / Time No Known Allergies Allergy Verified 10/13/14 19:29 - Home Medications Home Medications: Ambulatory Orders Aspirin [Aspirin EC] 81 mg PO DAILY 10/13/14 Atorvastatin Ca [Lipitor] 20 mg PO HS 10/13/14 Folic Acid - 1 mg PO DAILY 10/13/14 Ramipril [Altace] 2.5 mg PO DAILY 10/13/14 Nabumetone [Relafen -] 750 mg PO DAILY 10/14/14 Acetaminophen [Tylenol .Regular Strength -] 650 mg PO Q6H PRN #0 tablet Warfarin Sodium [Coumadin] 5 mg PO HS 30 Days tablet 10/16/14 Family Disease History - Family Disease History Family Disease History: Other: Brother (DM; 3 brothers) Review of Systems - Review of Systems Constitutional: reports: Lethargy, Loss of Appetite, Unintentional Wgt. Loss, Weakness HENT: reports: Difficult Swallowing Neck: reports: Lumps. denies: Pain on Movement, Stiffness Cardiovascular: reports: Shortness of Breath. denies: Chest Pain, Edema, Palpitations Respiratory: denies: Cough, Exercise Intolerance, Hemoptysis Musculoskeletal: reports: Back Pain, Muscle Weakness Physical Exam Vital Signs: Vital Signs Temperature 97.8 F 04/22/17 10:00 Pulse Rate 121 H 04/22/17 12:10 Respiratory Rate 20 04/22/17 10:00 Blood Pressure 126/64 04/22/17 12:10 O2 Sat by Pulse Oximetry (%) 92 L 04/22/17 09:00 Constitutional: Yes: Cachectic, Mild Distress, Thin Eyes: Yes: Conjunctiva Clear HENT: Yes: Atraumatic, Normocephalic Neck: Yes: Supple, Lymphadenopathy, Other (rt supraclavicular LAD) Cardiovascular: Yes: Regular Rate and Rhythm Respiratory: Yes: Regular Gastrointestinal: Yes: Normal Bowel Sounds, Distention Breast(s): Yes: WNL Musculoskeletal: Yes: Muscle Weakness Integumentary: Yes: WNL Neurological: Yes: Lethargy Labs: CBC, BMP 04/22/17 07:10 04/22/17 07:10 Imaging - Results X-ray: Report Reviewed Problem List - Problems (1) Lung cancer, primary, with metastasis from lung to other site Code(s): C34.90 - MALIGNANT NEOPLASM OF UNSP PART OF UNSP BRONCHUS OR LUNG Qualifiers: Laterality: unspecified laterality Qualified Code(s): C34.90 - Malignant neoplasm of unspecified part of unspecified bronchus or lung (2) Pneumonia Code(s): J18.9 - PNEUMONIA, UNSPECIFIED ORGANISM (3) HTN (hypertension) Code(s): I10 - ESSENTIAL (PRIMARY) HYPERTENSION Assessment/Plan New diagnosis ( radiological ) of Stage IV Ca ( reportedly Lung ) Progressive LE weakness, suspect malignant etiology/?para neoplastic supra therapeutic INR A fib thrombocytopenia Poor PS ( ECOG 3 ) Work-up pending Concern for metal ?, MRI cannot be done?. consider CT scans of the spine contrast and CTH non contrast. Supportive care, speech pathology consult reviewed. appreciate Neuro c/s high INR in the setting of poor po intake and from [facility]KA. Thrombocytopenia: likely possible PNA ?met ca , r/o DIC. pt/family aware of the process: biopsy for definitive diagnosis, and then follows palliative Rx as was explained to them by their doctor OP, for now they' ve decided he would not undergo Tx for his possible malignancy.pt/family wanted him to be in no pain. I have discussed with Prateek and initiated accordingly initiated a palliative care consult. will contact .
[2017-04-22] MEDS: MORPHINE SULFATE 10 MG/1 ML *VIAL IVPUSH PRN (14:56)
[2017-04-22] MEDS: AMPICILLIN NA/SULBACTAM NA 1.5 GM in SODIUM CHLORIDE 100 ML IVPB SCH ×2 (15:00→22:01)
--- NOTE | 2017-04-22 15:21 | CONS ---
INFECTIOUS DISEASE CONSULTATION DATE OF CONSULTATION: 04/22/2017 REASON FOR CONSULTATION: This is an 86-year-old male with recently diagnosed lung tumor, who I am asked to see for evaluation of pneumonia. HISTORY OF PRESENT ILLNESS: The history was offered from reviewing the patient's chart as well as discussing his case with his daughter who was in attendance. He apparently has a long history of heavy smoking and has had a progressive clinical decline since February. During this time, he has become increasingly weak and has lost over 15 pounds. He is followed by Dr. Apodaca [facility] at [facility] and only recently, within the last week, apparently had CT imaging of his chest which showed a lung cancer with a suspicion of metastatic disease to his liver, perhaps based on elevated liver enzymes. The scans are currently not available. His chest x-ray here showed a right lower lobe pneumonia. The patient does not appear to have any coughing or shortness of breath or sputum production. He has no history of recent travel. 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 He is a . PAST MEDICAL HISTORY: Includes atrial fibrillation, hypertension, hyperlipidemia. MEDICATIONS: Aspirin, atorvastatin, metoprolol, Ramipril. ALLERGIES: None known. SOCIAL HISTORY: Long history of heavy smoking, occasional alcohol use. FAMILY HISTORY: Reviewed, noncontributory. REVIEW OF SYSTEMS: Respiratory: Denies shortness of breath, cough, sputum. Cardiac: No chest pain, palpitations, syncope. History of atrial fibrillation. Gastrointestinal: Positive weight loss. No night sweats, abdominal pain, change in bowel habits. Genitourinary: No dysuria, hematuria, or urinary frequency. PHYSICAL EXAMINATION: General: He was an elderly, chronically ill-appearing male in no acute distress. Vital Signs: The temperature was 97.8, pulse 120, blood pressure 126/64, respirations 20, O2 saturation 93%. Neck: Supple. Lungs: Clear to percussion with bilateral rales noted. Heart: S1, S2. Irregularly irregular without murmur. Tachycardic. Abdomen: Nontender, nondistended. Positive bowel sounds. Questionable mass, right upper quadrant. Extremities: No clubbing, cyanosis, or edema. DIAGNOSTIC DATA: The white count was 15.9, hemoglobin 13.3, platelets 96,000 with 81% polys, 6 bands, 10 lymphs, 2 monocytes. INR of 9.42 and 8.73. BUN 69, creatinine 0.9. Bilirubin 5.3. AST 312, ALT 288, alkaline phosphatase 983. Urinalysis negative for nitrites. Two sets of blood cultures are currently pending. Chest x-ray shows an infiltrate in the right upper lobe. Modified barium swallow done earlier today showed delayed swallowing mechanism with no evidence of aspiration or any ingested substances. No evidence of obstruction. ASSESSMENT: An 86-year-old man reportedly with newly-diagnosed lung cancer, probable metastatic disease to liver and bone as patient is complaining of spinal tenderness. He does not appear acutely ill but certainly appears chronically ill and has been losing weight with progressive weakness. He has an elevated WBC count, possibly as a result of metastatic cancer and/or complicating pneumonia in the right lower lobe. He is also pancytopenic with a platelet count of 110,000 and a left shift noted, possible consistent with acute bacterial infection/pneumonia. As discussed with house staff, would empirically treat him pending cultures with ampicillin/sulbactam. I recommend that a call be placed to his primary medical doctor to find out and possibly obtain the results of his CT imaging so as not to duplicate those recently performed tests. Case was discussed at length with house staff and Dr. Caldera. EMANUEL SIMONS M.D. [id number]
[2017-04-22] MEDS ORDERED: PHYTONADIONE 10 MG/1 ML AMP SQ SCH (15:30)
[2017-04-22] MEDS: ATORVASTATIN CA 20 MG TABLET (FP) PO SCH (22:00)
[2017-04-23] MEDS: AMPICILLIN NA/SULBACTAM NA 1.5 GM in SODIUM CHLORIDE 100 ML IVPB SCH ×4 (02:37→21:11)
[2017-04-23] MEDS: METOPROLOL TARTRATE 5 MG/5 ML VIAL IVPUSH PRN ×3 (06:43→21:12)
[2017-04-23 07:28] LABS: HEMATOCRIT 38.7 % (35.4-49); HEMOGLOBIN 12.7 GM/dL (11.7-16.9); MCH 33.5 pg (25.7-33.7); MCHC 32.8 g/dl (32.0-35.9); MEAN CELL VOLUME 102.3 fl (80-96); PLATELET COUNT 89 K/MM3 (134-434); RBC 3.79 M/mm3 (4.00-5.60); RDW 15.5 % (11.9-15.9); WHITE BLOOD COUNT 15.3 K/mm3 (4.0-10.0)
[2017-04-23 07:49] LABS: INR 2.35 (0.82-1.09); PROTHROMBIN TIME (PATIENT) 26.6 SEC (9.98-11.88)
--- NOTE | 2017-04-23 09:33 | PN ---
Addendum entered and electronically signed by Philip Khan, RESIDENT 04/23 16:14: Patient needs a semi-electric hospital bed with an alternating pressure pad. Patient has limited mobility and cognitive functioning due to stage 4 lung cancer. patient will require frequent body position changes which he cannot complete independently and are not feasible with a regular bed to alleviate pain , prevent aspiration, and prevent further skin breakdown. Original Note: <Philip Khan - Last Filed: 04/23/17 09:50> Physical Exam: SUBJECTIVE: Patient seen and examined at bedside. No acute overnight events. Patient states that he has more energy than he did yesterday. States that he still does not have an appetite but did attempt to eat. Denies chest pain, SOB, nausea, vomiting, diarrhea, fevers, chills. OBJECTIVE: Vital Signs Period Temp Pulse Resp BP Sys/Roach Pulse Ox Last 24 Hr 97.4 F-97.8 F 97-141 20-22 117-150/53-88 92 GENERAL: The patient is awake, alert, and fully oriented, in no acute distress. HEAD: Normal with no signs of trauma. NECK: Trachea midline, full range of motion, supple. LUNGS: Breath sounds equal, minimal bibasilar crackles noted on exam HEART: tachycardic and irregular in rhythm, normal S1, S2 without murmur, rub or gallop. ABDOMEN: RUQ firm on palpation, nontender, bowel sounds present EXTREMITIES: 2+ pulses, warm, well-perfused, no edema. NEUROLOGICAL: Cranial nerves II through XII grossly intact. Normal speech, gait not observed. PSYCH: Normal mood, normal affect. SKIN: Warm, dry, normal turgor, no rashes or lesions noted Laboratory Results - last 24 hr 04/22/17 04/22/17 04/22/17 07:10 07:10 07:10 WBC RBC Hgb Hct MCV MCH MCHC RDW Plt Count MPV Total Counted 100 Neutrophils % Neutrophils % (Manual) 1.0 L Band Neutrophils % 6.0 Lymphocytes % Lymphocytes % (Manual) 3.0 L D Myelocytes % (Man) 2 Nucleated RBC % 2 H Platelet Estimate Decreased PT with INR 98.60 H INR 8.73 H* Fibrinogen Sodium 135 L Potassium 4.9 Chloride 99 Carbon Dioxide 23 Anion Gap 13 BUN 67 H Creatinine 1.0 Random Glucose 119 H Calcium 9.7 Creatine Kinase Vitamin B12 2222 H Serum Folate 14 TSH 0.88 04/23/17 04/23/17 04/23/17 05:41 05:41 05:41 WBC 15.3 H RBC 3.79 L Hgb 12.7 Hct 38.7 MCV 102.3 H MCH 33.5 MCHC 32.8 RDW 15.5 Plt Count 89 L MPV 10.0 Total Counted Neutrophils % No Result Required. Neutrophils % (Manual) Band Neutrophils % Lymphocytes % No Result Required. Lymphocytes % (Manual) Myelocytes % (Man) Nucleated RBC % Platelet Estimate PT with INR INR Fibrinogen Sodium Potassium Chloride Carbon Dioxide Anion Gap BUN Creatinine Random Glucose Calcium Creatine Kinase 449 H Cancelled Vitamin B12 Serum Folate TSH 0.60 D 04/23/17 05:41 WBC RBC Hgb Hct MCV MCH MCHC RDW Plt Count MPV Total Counted Neutrophils % Neutrophils % (Manual) Band Neutrophils % Lymphocytes % Lymphocytes % (Manual) Myelocytes % (Man) Nucleated RBC % Platelet Estimate PT with INR 26.60 H INR 2.35 H D Fibrinogen 351.0 Sodium Potassium Chloride Carbon Dioxide Anion Gap BUN Creatinine Random Glucose Calcium Creatine Kinase Vitamin B12 Serum Folate TSH Active Medications Generic Name Dose Route Start Last Admin Trade Name Freq PRN Reason Stop Dose Admin Aspirin 81 mg 04/22/17 10:00 04/22/17 10:28 Ecotrin - PO 81 mg DAILY SUE Administration Atorvastatin Calcium 20 mg 04/22/17 22:00 04/22/17 22:00 Lipitor - PO 20 mg HS SUE Administration Folic Acid 1 mg 04/22/17 10:00 04/22/17 09:16 Folic Acid - PO 1 mg DAILY SUE Administration Sodium Chloride 1,000 mls @ 75 mls/hr 04/22/17 01:30 04/22/17 01:55 Normal Saline - IV 75 mls/hr ASDIR SUE Administration Ampicillin Sodium/Sulbactam 100 mls @ 200 mls/hr 04/22/17 15:00 04/23/17 02: 37 Sodium 1.5 gm/ Sodium Chloride IVPB 200 mls/hr Q6H-IV SUE Administration Metoprolol Tartrate 5 mg 04/22/17 01:41 04/23/17 06:43 Lopressor Injection - IVPUSH 5 mg Q4H PRN Administration HYPERTENSION Morphine Sulfate 1 mg 04/22/17 13:31 04/22/17 14:56 Morphine Injection - IVPUSH 1 mg Q6H PRN Administration PAIN LEVEL 6-10 Ramipril 2.5 mg 04/22/17 10:00 04/22/17 09:16 Altace - PO 2.5 mg DAILY SUE Administration INR, PTT INR 2.35 (0.82-1.09) H D 04/23/17 05:41 Fibrinogen 351.0 mg/dL (238-498) 04/23/17 05:41 CBC, BMP 04/23/17 05:41 04/22/17 07:10 ASSESSMENT/PLAN: 86 y/o M with PMH afib (on coumadin), HTN, HLD, recent diagnosis of lung CA ( by Dr. Apodaca) who presents to the ED with gradually worsening weakness over the last three weeks and poor oral intake as well as back pain #Weakness: likely 2/2 metastatic lung CA, r/o brain and spine mets -Brain MRI wasn't able to be performed due to family not knowing type of stents patient has -family refused CT brain without contrast after attempt to inform them of the risks/benefits -consult Dr. Silva appreciated (head CT without contrast) -Neuro Consult- Dr. Cook appreciated -Speech and swallow consult for modified barium swallow appreciated - dysphagia (minced) with ensures, lift head of bed, small bites, chin tuck/down, safe rate , 1/2 tsp. at a time, elevate HOB during feed #Acute hypoxic respiratory failure 2/2 pneumonia: possible pneumonia -ABG normal -Continue on nasal cannula 2 liters -continue ceftriaxone and azithromycin -f/u cultures #Atrial fibrillation with supratherapeutic INR (on admission 9.42): improved to 2.35 -start coumadin 4mg PO QD -repeat INR in AM -Lopressor 5mg IVP q4h PRN rate control if HR >110 -Cardio consult appreciated #Hypertension: controlled -Continue ramipril 2.5mg daily #Hyperlipidemia -Continue lipitor 20mg PO HS #Prophylaxis DVT: supratherapeutic INR, SCD's #FEN Not on standing fluids Replete lytes in AM Sodium controlled diet #Disposition -Continue to monitor on Tele DNR/DNI Visit type - Emergency Visit Emergency Visit: No - New Patient This patient is new to me today: No - Critical Care Critical Care patient: No <TomáscandePardeep ogmynor - Last Filed: 04/23/17 19:05> Physical Exam: Patient seen and examined, discussed with the son who is at bedside, requesting no CTs at this time, wants to know the functional status of the patient. Will check with the physical therapist.
[2017-04-23] MEDS: RAMIPRIL 2.5 MG CAPSULE (FP) PO SCH (09:59)
[2017-04-23] MEDS: FOLIC ACID 1 MG TABLET (FP) PO SCH (09:59)
[2017-04-23] MEDS ORDERED: PT OWN MED DRAWER 7, Y5N ONE ×3 (10:01→21:02)
[2017-04-23] MEDS: ASPIRIN COATED 81 MG TABLET.EC PO SCH (10:04)
[2017-04-23 10:13] LABS: PLATELET ESTIMATE DECREASED
--- NOTE | 2017-04-23 11:53 | PN ---
Progress Note (short form) - Note Progress Note: pt seen and examined. Feels congested and short of breath. Daughter at bedside. O/E: Constitutional: Yes: Cachectic, Mild Distress, Thin Eyes: Yes: Conjunctiva Clear HENT: Yes: Atraumatic, Normocephalic Neck: Yes: Supple, Lymphadenopathy, Other (rt supraclavicular LAD) Cardiovascular: Yes: Regular Rate and Rhythm Respiratory: Yes: Regular, rhonchorous Gastrointestinal: Yes: Normal Bowel Sounds, Distention Breast(s): Yes: WNL Musculoskeletal: Yes: Muscle Weakness Integumentary: Yes: WNL Neurological: Yes: Lethargy Last Vital Signs Temp Pulse Resp BP Pulse Ox 97.3 F L 100 H 22 120/78 92 L 04/23/17 09:24 04/23/17 09:24 04/23/17 09:24 04/23/17 09:24 04/22/17 21:00 CBC, BMP 04/23/17 05:41 04/22/17 07:10 Current Medications Generic Name Dose Route Start Last Admin Trade Name Freq PRN Reason Stop Dose Admin Aspirin 81 mg 04/22/17 10:00 04/23/17 10:04 Ecotrin - PO 81 mg DAILY SUE Administration Atorvastatin Calcium 20 mg 04/22/17 22:00 04/22/17 22:00 Lipitor - PO 20 mg HS SUE Administration Folic Acid 1 mg 04/22/17 10:00 04/23/17 09:59 Folic Acid - PO 1 mg DAILY SUE Administration Sodium Chloride 1,000 mls @ 75 mls/hr 04/22/17 01:30 04/22/17 01:55 Normal Saline - IV 75 mls/hr ASDIR SUE Administration Ampicillin Sodium/Sulbactam 100 mls @ 200 mls/hr 04/22/17 15:00 04/23/17 10: 04 Sodium 1.5 gm/ Sodium Chloride IVPB 200 mls/hr Q6H-IV SUE Administration Metoprolol Tartrate 5 mg 04/22/17 01:41 04/23/17 06:43 Lopressor Injection - IVPUSH 5 mg Q4H PRN Administration HYPERTENSION Morphine Sulfate 1 mg 04/22/17 13:31 04/22/17 14:56 Morphine Injection - IVPUSH 1 mg Q6H PRN Administration PAIN LEVEL 6-10 Ramipril 2.5 mg 04/22/17 10:00 04/23/17 09:59 Altace - PO 2.5 mg DAILY SUE Administration Warfarin Sodium 4 mg 04/23/17 18:00 Coumadin - PO DAILY@1800 [facility] possible metastatic ca abnormal LFTS Coagulopathy poor PS family declined further w/u and contemplating on taking home pal care f/u supportive care rest per primary team d/w primary team resident Problem List - Problems (1) Lung cancer, primary, with metastasis from lung to other site Code(s): C34.90 - MALIGNANT NEOPLASM OF UNSP PART OF UNSP BRONCHUS OR LUNG Qualifiers: Laterality: unspecified laterality Qualified Code(s): C34.90 - Malignant neoplasm of unspecified part of unspecified bronchus or lung (2) Pneumonia Code(s): J18.9 - PNEUMONIA, UNSPECIFIED ORGANISM (3) HTN (hypertension) Code(s): I10 - ESSENTIAL (PRIMARY) HYPERTENSION
--- NOTE | 2017-04-23 12:51 | PN ---
Progress Note, MOTOR BOSS - Note Progress Note: More alert. Looks more comfortable. Asking for water. MBS reviewed with Staff. Thinned out puree, single careful sips of thin liquid. Double swallows, effortful swallow. Alternate puree with liquid and complete meal with liquid. Ensure. Monitor tolerance.
--- NOTE | 2017-04-23 14:43 | PN ---
Progress Note, Physician Chief Complaint: Cardiology follow up Telem Afib HR at times up to 140. History of Present Illness: 86 y/o M with PMH afib (on coumadin), HTN, HLD, stage 4 lung CA came to the ED with weakness over the last three weeks. During this time, pt had a fourteen pound weight loss and decreased appetite. More recently, over the last two days , dizziness, SOB, intermittent productive cough (yellow sputum, without blood), increased urinary frequency with decreased void volume, brown-red urine and back pain. Denies LOCKHART, fever, night sweats, chills, chest pain, or changes in bowel function. - Current Medication List Current Medications: Active Medications Aspirin (Ecotrin -) 81 mg PO DAILY [facility] Last Admin: 04/23/17 10:04 Dose: 81 mg Atorvastatin Calcium (Lipitor -) 20 mg PO HS [facility] Last Admin: 04/22/17 22:00 Dose: 20 mg Folic Acid (Folic Acid -) 1 mg PO DAILY [facility] Last Admin: 04/23/17 09:59 Dose: 1 mg Sodium Chloride (Normal Saline -) 1,000 mls @ 75 mls/hr IV ASDIR [facility] Last Admin: 04/22/17 01:55 Dose: 75 mls/hr Ampicillin Sodium/Sulbactam (Sodium 1.5 gm/ Sodium Chloride) 100 mls @ 200 mls/ hr IVPB Q6H-IV [facility] Last Admin: 04/23/17 10:04 Dose: 200 mls/hr Metoprolol Tartrate (Lopressor Injection -) 5 mg IVPUSH Q4H PRN PRN Reason: HYPERTENSION Last Admin: 04/23/17 12:15 Dose: 5 mg Morphine Sulfate (Morphine Injection -) 1 mg IVPUSH Q6H PRN PRN Reason: PAIN LEVEL 6-10 Last Admin: 04/22/17 14:56 Dose: 1 mg Ramipril (Altace -) 2.5 mg PO DAILY [facility] Last Admin: 04/23/17 09:59 Dose: 2.5 mg Warfarin Sodium (Coumadin -) 4 mg PO DAILY@1800 [facility] - Objective Vital Signs: Vital Signs Temperature 97.4 F L 04/23/17 13:20 Pulse Rate 81 04/23/17 13:20 Respiratory Rate 23 04/23/17 13:20 Blood Pressure 105/74 04/23/17 13:20 O2 Sat by Pulse Oximetry (%) 92 L 04/22/17 21:00 Constitutional: Yes: Cachectic Eyes: Yes: EOM Intact HENT: Yes: Atraumatic, Normocephalic Neck: Yes: Trachea Midline Cardiovascular: Yes: Tachycardia, Pulse Irregular Respiratory: Yes: Cough, Poor Air Entry Gastrointestinal: Yes: Normal Bowel Sounds Edema: No Labs: CBC, BMP 04/23/17 05:41 04/22/17 07:10 INR, PTT INR 2.35 (0.82-1.09) H D 04/23/17 05:41 Fibrinogen 351.0 mg/dL (238-498) 04/23/17 05:41 Problem List - Problems (1) Afib Code(s): I48.91 - UNSPECIFIED ATRIAL FIBRILLATION Assessment/Plan HR is elevated at times due to Afib. Recommend adding Metoprolol Tartrate to be mixed with apple sauce and can start at 25mg BID.
--- NOTE | 2017-04-23 15:12 | PN ---
Progress Note, Physician Chief Complaint: ID Taty CASAS Family taking him home - Current Medication List Current Medications: Active Medications Aspirin (Ecotrin -) 81 mg PO DAILY [facility] Last Admin: 04/23/17 10:04 Dose: 81 mg Atorvastatin Calcium (Lipitor -) 20 mg PO HS [facility] Last Admin: 04/22/17 22:00 Dose: 20 mg Folic Acid (Folic Acid -) 1 mg PO DAILY [facility] Last Admin: 04/23/17 09:59 Dose: 1 mg Sodium Chloride (Normal Saline -) 1,000 mls @ 75 mls/hr IV ASDIR [facility] Last Admin: 04/22/17 01:55 Dose: 75 mls/hr Ampicillin Sodium/Sulbactam (Sodium 1.5 gm/ Sodium Chloride) 100 mls @ 200 mls/ hr IVPB Q6H-IV [facility] Last Admin: 04/23/17 10:04 Dose: 200 mls/hr Metoprolol Tartrate (Lopressor Injection -) 5 mg IVPUSH Q4H PRN PRN Reason: HYPERTENSION Last Admin: 04/23/17 12:15 Dose: 5 mg Morphine Sulfate (Morphine Injection -) 1 mg IVPUSH Q6H PRN PRN Reason: PAIN LEVEL 6-10 Last Admin: 04/22/17 14:56 Dose: 1 mg Ramipril (Altace -) 2.5 mg PO DAILY [facility] Last Admin: 04/23/17 09:59 Dose: 2.5 mg Warfarin Sodium (Coumadin -) 4 mg PO DAILY@1800 [facility] - Objective Vital Signs: Vital Signs Temperature 97.4 F L 04/23/17 13:20 Pulse Rate 81 04/23/17 13:20 Respiratory Rate 23 04/23/17 13:20 Blood Pressure 105/74 04/23/17 13:20 O2 Sat by Pulse Oximetry (%) 92 L 04/22/17 21:00 HENT: Yes: WNL, Atraumatic Neck: Yes: WNL, Supple Cardiovascular: Yes: Pulse Irregular, S1, S2 Respiratory: Yes: WNL, CTA Bilaterally, Diminished Gastrointestinal: Yes: Soft. No: Tenderness, Tenderness, Epigastrium Labs: CBC, BMP 04/23/17 05:41 04/22/17 07:10 INR, PTT INR 2.35 (0.82-1.09) H D 04/23/17 05:41 Fibrinogen 351.0 mg/dL (238-498) 04/23/17 05:41 Problem List - Problems (1) Pneumonia Code(s): J18.9 - PNEUMONIA, UNSPECIFIED ORGANISM (2) Lung cancer, primary, with metastasis from lung to other site Code(s): C34.90 - MALIGNANT NEOPLASM OF UNSP PART OF UNSP BRONCHUS OR LUNG Qualifiers: Laterality: unspecified laterality Qualified Code(s): C34.90 - Malignant neoplasm of unspecified part of unspecified bronchus or lung Assessment/Plan Microbiology 04/22/17 01:20 Urine - Urine Clean Catch Urine Culture - Final NO GROWTH OBTAINED 04/22/17 00:30 Nasopharyngeal Swab Influenza Types A,B Antigen (JUDI) - Final 04/22/17 00:30 Nasopharyngeal Swab - Final 04/22/17 01:20 Blood - Arterial Blood Culture - Preliminary NO GROWTH OBTAINED AFTER 24 HOURS, INCUBATION TO CONTINUE FOR 4 DAYS. 04/22/17 01:20 Blood - Arterial Blood Culture - Preliminary NO GROWTH OBTAINED AFTER 24 HOURS, INCUBATION TO CONTINUE FOR 4 DAYS. Laboratory Tests 04/22/17 04/23/17 07:10 05:41 WBC 15.3 H Hgb 12.7 Plt Count 89 L BUN 67 H Creatinine 1.0 ASsessmnet MEtastatic cancer ? aspiration PNA Plan Going home PO Augmentin 500mg liquid tid 5 -7 days [place] JEFFERSON
[2017-04-23] MEDS: WARFARIN NA 2 MG TABLET (UD) PO SCH (18:14)
[2017-04-23] MEDS: MORPHINE SULFATE 10 MG/1 ML *VIAL IVPUSH PRN (18:15)
[2017-04-23] MEDS: ATORVASTATIN CA 20 MG TABLET (FP) PO SCH (21:12)
[2017-04-24] MEDS: MORPHINE SULFATE 10 MG/1 ML *VIAL IVPUSH PRN ×3 (00:41→17:39)
[2017-04-24] MEDS: SODIUM CHLORIDE 1,000 ML IV SCH ×2 (00:41→09:29)
[2017-04-24] MEDS: AMPICILLIN NA/SULBACTAM NA 1.5 GM in SODIUM CHLORIDE 100 ML IVPB SCH ×4 (02:00→22:01)
[2017-04-24] MEDS ORDERED: PT OWN MED DRAWER 7, Y5N ONE ×3 (09:27→21:53)
[2017-04-24] MEDS: METOPROLOL TARTRATE 5 MG/5 ML VIAL IVPUSH PRN ×2 (09:31→18:20)
[2017-04-24] MEDS: FOLIC ACID 1 MG TABLET (FP) PO SCH (09:34)
[2017-04-24] MEDS: RAMIPRIL 2.5 MG CAPSULE (FP) PO SCH (09:34)
[2017-04-24] MEDS: ASPIRIN COATED 81 MG TABLET.EC PO SCH (09:34)
--- NOTE | 2017-04-24 13:17 | PN ---
Progress Note, Physician Chief Complaint: still sob weak tele af rvr History of Present Illness: 86 y/o M with PMH afib (on coumadin), HTN, HLD, stage 4 lung CA came to the ED with weakness over the last three weeks. During this time, pt had a fourteen pound weight loss and decreased appetite. More recently, over the last two days , dizziness, SOB, intermittent productive cough (yellow sputum, without blood), increased urinary frequency with decreased void volume, brown-red urine and back pain. Denies LOCKHART, fever, night sweats, chills, chest pain, or changes in bowel function. still with RVR. - Current Medication List Current Medications: Active Medications Aspirin (Ecotrin -) 81 mg PO DAILY [facility] Last Admin: 04/24/17 09:34 Dose: 81 mg Atorvastatin Calcium (Lipitor -) 20 mg PO HS [facility] Last Admin: 04/23/17 21:12 Dose: 20 mg Folic Acid (Folic Acid -) 1 mg PO DAILY [facility] Last Admin: 04/24/17 09:34 Dose: 1 mg Sodium Chloride (Normal Saline -) 1,000 mls @ 75 mls/hr IV ASDIR [facility] Last Admin: 04/24/17 09:29 Dose: Not Given Ampicillin Sodium/Sulbactam (Sodium 1.5 gm/ Sodium Chloride) 100 mls @ 200 mls/ hr IVPB Q6H-IV [facility] Last Admin: 04/24/17 09:34 Dose: 200 mls/hr Metoprolol Tartrate (Lopressor Injection -) 5 mg IVPUSH Q4H PRN PRN Reason: HYPERTENSION Last Admin: 04/24/17 09:31 Dose: 5 mg Morphine Sulfate (Morphine Injection -) 1 mg IVPUSH Q6H PRN PRN Reason: PAIN LEVEL 6-10 Last Admin: 04/24/17 10:46 Dose: 1 mg Ramipril (Altace -) 2.5 mg PO DAILY [facility] Last Admin: 04/24/17 09:34 Dose: 2.5 mg Warfarin Sodium (Coumadin -) 4 mg PO DAILY@1800 [facility] Last Admin: 04/23/17 18:14 Dose: 4 mg - Objective Vital Signs: Vital Signs Temperature 97.4 F L 04/24/17 10:00 Pulse Rate 148 H 04/24/17 10:00 Respiratory Rate 22 04/24/17 10:00 Blood Pressure 144/98 04/24/17 10:00 O2 Sat by Pulse Oximetry (%) 93 L 04/24/17 10:00 Constitutional: Yes: No Distress Eyes: Yes: Conjunctiva Clear, EOM Intact HENT: Yes: Normocephalic Neck: Yes: Trachea Midline Cardiovascular: Yes: Pulse Irregular Respiratory: Yes: Poor Air Entry, Rhonchi Gastrointestinal: Yes: Normal Bowel Sounds, Soft Extremities: Yes: WNL Peripheral Pulses WNL: Yes Labs: CBC, BMP 04/23/17 05:41 04/22/17 07:10 INR, PTT INR 2.35 (0.82-1.09) H D 04/23/17 05:41 Fibrinogen 351.0 mg/dL (238-498) 04/23/17 05:41 Problem List - Problems (1) Afib Assessment/Plan: Increased heart rate due to his pulm status. Increase metoprolol as tolerated by bp and hr. continue coumadin. Code(s): I48.91 - UNSPECIFIED ATRIAL FIBRILLATION Qualifiers: Atrial fibrillation type: chronic Qualified Code(s): I48.2 - Chronic atrial fibrillation
--- NOTE | 2017-04-24 14:33 | PN ---
Progress Note (short form) - Note Progress Note: PAtient seen and examined Last Vital Signs Temp Pulse Resp BP Pulse Ox 97.4 F L 148 H 22 144/98 93 L 04/24/17 10:00 04/24/17 10:00 04/24/17 10:00 04/24/17 10:00 04/24/17 10:00 Cor: RSR, No murmurs, No gallops Lungs: Clear to P&A Abd: Soft, Normal bowel sounds, No organomegaly Ext:No significant edema LAbs/MEds reviewed A/P 86 y/o patient with
--- NOTE | 2017-04-24 17:36 | PN ---
Physical Exam: SUBJECTIVE: Patient seen and examined Patient is lying in bed with no acute distress, son at bedside. requesting comfort measures. OBJECTIVE: Vital Signs Temperature 97.3 F L 04/24/17 14:10 Pulse Rate 141 H 04/24/17 14:10 Respiratory Rate 22 04/24/17 14:10 Blood Pressure 123/77 04/24/17 14:10 O2 Sat by Pulse Oximetry (%) 93 L 04/24/17 10:00 GENERAL: The patient is easily arousable, sleeping with eyes open, in no acute distress. Cachectic looking. HEAD: Normal with no signs of trauma. EYES: PERRL, extraocular movements intact, sclera anicteric, conjunctiva clear. ENT: Ears normal, oropharynx clear without exudates, moist mucous membranes. NECK: Trachea midline, full range of motion, supple. LUNGS: Breath sounds equal, clear to auscultation bilaterally, no wheezes, no crackles, no accessory muscle use. HEART: tachycardic , S1, S2 positive , LYNDA 2/6 no rub or gallop. ABDOMEN: Soft, nontender, nondistended, normoactive bowel sounds, no guarding, no rebound, positive for hepatomegaly. EXTREMITIES: 2+ pulses, warm, well-perfused, no edema. NEUROLOGICAL: Cranial nerves II through XII grossly intact. Normal speech, gait not observed. PSYCH: looks depressed SKIN: Warm, dry, normal turgor, no rashes or lesions noted CBCD WBC 15.3 K/mm3 (4.0-10.0) H 04/23/17 05:41 RBC 3.79 M/mm3 (4.00-5.60) L 04/23/17 05:41 Hgb 12.7 GM/dL (11.7-16.9) 04/23/17 05:41 Hct 38.7 % (35.4-49) 04/23/17 05:41 MCV 102.3 fl (80-96) H 04/23/17 05:41 MCHC 32.8 g/dl (32.0-35.9) 04/23/17 05:41 RDW 15.5 % (11.9-15.9) 04/23/17 05:41 Plt Count 89 K/MM3 (134-434) L 04/23/17 05:41 MPV 10.0 fl (7.5-11.1) 04/23/17 05:41 CMP Sodium 135 mmol/L (136-145) L 04/22/17 07:10 Potassium 4.9 mmol/L (3.5-5.1) 04/22/17 07:10 Chloride 99 mmol/L (98-107) 04/22/17 07:10 Carbon Dioxide 23 mmol/L (21-32) 04/22/17 07:10 Anion Gap 13 (8-16) 04/22/17 07:10 BUN 67 mg/dL (7-18) H 04/22/17 07:10 Creatinine 1.0 mg/dL (0.7-1.3) 04/22/17 07:10 Creat Clearance w eGFR > 60 (>60) 04/21/17 20:32 Random Glucose 119 mg/dL (74-106) H 04/22/17 07:10 Calcium 9.7 mg/dL (8.5-10.1) 04/22/17 07:10 Total Bilirubin 5.3 mg/dL (0.2-1.0) H D 04/21/17 20:32 AST 312 U/L (15-37) H D 04/21/17 20:32 ALT 288 U/L (12-78) H D 04/21/17 20:32 Alkaline Phosphatase 983 U/L (45-117) H D 04/21/17 20:32 Total Protein 6.6 g/dl (6.4-8.2) 04/21/17 20:32 Albumin 3.0 g/dl (3.4-5.0) L 04/21/17 20:32 CARDIAC ENZYMES Creatine Kinase 449 IU/L (39-308) H 04/23/17 05:41 Troponin I 0.02 ng/ml (0.00-0.05) D 04/22/17 07:10 Active Medications Generic Name Dose Route Start Last Admin Trade Name Marlen PRN Reason Stop Dose Admin Aspirin 81 mg 04/22/17 10:00 04/24/17 09:34 Ecotrin - PO 81 mg DAILY SUE Administration Atorvastatin Calcium 20 mg 04/22/17 22:00 04/23/17 21:12 Lipitor - PO 20 mg HS SUE Administration Folic Acid 1 mg 04/22/17 10:00 04/24/17 09:34 Folic Acid - PO 1 mg DAILY SUE Administration Sodium Chloride 1,000 mls @ 75 mls/hr 04/22/17 01:30 04/24/17 09:29 Normal Saline - IV Not Given ASDIR SUE Ampicillin Sodium/Sulbactam 100 mls @ 200 mls/hr 04/22/17 15:00 04/24/17 15: 36 Sodium 1.5 gm/ Sodium Chloride IVPB 200 mls/hr Q6H-IV SUE Administration Metoprolol Tartrate 5 mg 04/22/17 01:41 04/24/17 09:31 Lopressor Injection - IVPUSH 5 mg Q4H PRN Administration HYPERTENSION Morphine Sulfate 1 mg 04/22/17 13:31 04/24/17 10:46 Morphine Injection - IVPUSH 1 mg Q6H PRN Administration PAIN LEVEL 6-10 Ramipril 2.5 mg 04/22/17 10:00 04/24/17 09:34 Altace - PO 2.5 mg DAILY SUE Administration Warfarin Sodium 4 mg 04/23/17 18:00 04/23/17 18:14 Coumadin - PO 4 mg DAILY@1800 SUE Administration Home Medications Medication Instructions Recorded Aspirin [Aspirin EC] 81 mg PO DAILY 10/13/14 Atorvastatin Ca [Lipitor] 20 mg PO HS 10/13/14 Folic Acid - 1 mg PO DAILY 10/13/14 Ramipril [Altace] 2.5 mg PO DAILY 10/13/14 Nabumetone [Relafen -] 750 mg PO DAILY 10/14/14 Acetaminophen [Tylenol .Regular 650 mg PO Q6H PRN #0 tablet 10/16/14 Strength -] Warfarin Sodium [Coumadin] 5 mg PO HS 30 Days tablet 10/16/14 ASSESSMENT/PLAN: 86 y/o M with PMH afib (on coumadin), HTN, HLD, recent diagnosis of lung CA ( by Dr. Apodaca) who presents to the ED with gradually worsening weakness over the last three weeks and poor oral intake as well as back pain #Acute generalized weakness with cachexia : As per proxy comfort care and requesting [place]. Metastatic lung CA, r/o brain and spine mets Oncology on the case # Lung CA with mets to liver and possible to brain and as per son no further testing. Oncology is on the case, Son requesting comfort care, [facility] transfer. #Acute hypoxic respiratory failure due to RLL pneumonia on Unasyn continue. # Acute Pneumonia continue Unasyn. #Atrial fibrillation with supratherapeutic INR (on admission 9.42): improved to 2.35, will continue coumadin -Lopressor 5mg IVP q4h PRN rate control if HR >110, Cardio consult appreciated #Hypertension: controlled Continue ramipril 2.5mg daily #Hyperlipidemia, Continue lipitor 20mg PO HS DVT Px: Coumadin Visit type - Emergency Visit Emergency Visit: Yes ED Registration Date: 04/22/17 Care time: The patient presented to the Emergency Department on the above date and was hospitalized for further evaluation of their emergent condition. - New Patient This patient is new to me today: No - Critical Care Critical Care patient: No - Discharge Referral Referred to [facility] Med [facility] No
[2017-04-24] MEDS: WARFARIN NA 2 MG TABLET (UD) PO SCH (17:57)
[2017-04-24] MEDS: ATORVASTATIN CA 20 MG TABLET (FP) PO SCH (22:01)
[2017-04-25] MEDS ORDERED: PT OWN MED DRAWER 7, Y5N ONE ×4 (02:57→21:35)
[2017-04-25] MEDS: METOPROLOL TARTRATE 5 MG/5 ML VIAL IVPUSH PRN ×4 (03:02→21:39)
[2017-04-25] MEDS: AMPICILLIN NA/SULBACTAM NA 1.5 GM in SODIUM CHLORIDE 100 ML IVPB SCH ×4 (03:03→21:40)
[2017-04-25] MEDS: SODIUM CHLORIDE 1,000 ML IV SCH (03:03)
[2017-04-25] MEDS: MORPHINE SULFATE 10 MG/1 ML *VIAL IVPUSH PRN ×5 (06:39→23:18)
[2017-04-25 08:04] LABS: HEMATOCRIT 37.5 % (35.4-49); HEMOGLOBIN 12.2 GM/dL (11.7-16.9); MCH 33.7 pg (25.7-33.7); MCHC 32.4 g/dl (32.0-35.9); MEAN CELL VOLUME 103.9 fl (80-96); MEAN PLT VOLUME 9.5 fl (7.5-11.1); RBC 3.61 M/mm3 (4.00-5.60); RDW 16.2 % (11.9-15.9); WHITE BLOOD COUNT 13.9 K/mm3 (4.0-10.0)
[2017-04-25 08:07] LABS: INR 1.27 (0.82-1.09); PROTHROMBIN TIME (PATIENT) 14.4 SEC (9.98-11.88)
[2017-04-25 08:42] LABS: CHLORIDE 113 mmol/L (98-107); POTASSIUM 4.4 mmol/L (3.5-5.1); SODIUM 146 mmol/L (136-145)
[2017-04-25 08:49] LABS: ALBUMIN 2.3 g/dl (3.4-5.0); ALK PHOS 748 U/L (45-117); ANION GAP 15 (8-16); BILIRUBIN,TOTAL 6.3 mg/dL (0.2-1.0); BLOOD UREA NITROGEN 57 mg/dL (7-18); CALCIUM 9.1 mg/dL (8.5-10.1); CO2 18 mmol/L (21-32); CREATININE 0.6 mg/dL (0.7-1.3); GLUCOSE,RANDOM 73 mg/dL (74-106); MAGNESIUM 2.6 mg/dL (1.8-2.4); SGPT/ALT 270 U/L (12-78); TOT PROT 5.4 g/dl (6.4-8.2)
[2017-04-25 08:58] LABS: SGOT/AST 419 U/L (15-37)
[2017-04-25 09:12] LABS: PLATELET COUNT 68 K/MM3 (134-434)
--- NOTE | 2017-04-25 10:34 | PN ---
<Philip Khan - Last Filed: 04/25/17 10:39> Physical Exam: SUBJECTIVE: Patient seen and examined at bedside. Patient is sleeping comfortably. No acute overnight events. Patient's son was concerned about placement at [place]. Son wanted to speak to social work. OBJECTIVE: Vital Signs Period Temp Pulse Resp BP Sys/Roach Pulse Ox Last 24 Hr 97.3 F-97.8 F 120-145 22-24 109-128/61-88 96 GENERAL: The patient is awake, alert, and fully oriented, in no acute distress. HEAD: Normal with no signs of trauma. NECK: Trachea midline, full range of motion, supple. Large R-sided supraclavicular lymph node/mass palpated on exam. LUNGS: Breath sounds equal, minimal bibasilar crackles noted on exam HEART: tachycardic and irregular in rhythm, normal S1, S2 without murmur, rub or gallop. ABDOMEN: RUQ firm on palpation, nontender, bowel sounds present EXTREMITIES: 2+ pulses, warm, well-perfused, no edema. NEUROLOGICAL: Cranial nerves II through XII grossly intact. Normal speech, gait not observed. PSYCH: Normal mood, normal affect. SKIN: Warm, dry, normal turgor, no rashes or lesions noted Laboratory Results - last 24 hr 04/25/17 04/25/17 04/25/17 06:15 06:15 06:15 WBC 13.9 H RBC 3.61 L Hgb 12.2 Hct 37.5 MCV 103.9 H MCH 33.7 MCHC 32.4 RDW 16.2 H Plt Count 68 L D MPV 9.5 PT with INR 14.40 H INR 1.27 H D Sodium 146 H Potassium 4.4 Chloride 113 H D Carbon Dioxide 18 L D Anion Gap 15 BUN 57 H Creatinine 0.6 L D Creat Clearance w eGFR > 60 Random Glucose 73 L D Calcium 9.1 Magnesium 2.6 H D Total Bilirubin 6.3 H AST 419 H D ALT 270 H Alkaline Phosphatase 748 H D Total Protein 5.4 L Albumin 2.3 L D Active Medications Generic Name Dose Route Start Last Admin Trade Name Freq PRN Reason Stop Dose Admin Aspirin 81 mg 04/22/17 10:00 04/24/17 09:34 Ecotrin - PO 81 mg DAILY SUE Administration Atorvastatin Calcium 20 mg 04/22/17 22:00 02/03/18 22:01 Lipitor - PO 20 mg HS SUE Administration Folic Acid 1 mg 04/22/17 10:00 04/24/17 09:34 Folic Acid - PO 1 mg DAILY SUE Administration Sodium Chloride 1,000 mls @ 75 mls/hr 04/22/17 01:30 04/25/17 03:03 Normal Saline - IV 75 mls/hr ASDIR SUE Administration Ampicillin Sodium/Sulbactam 100 mls @ 200 mls/hr 04/22/17 15:00 04/25/17 10: 19 Sodium 1.5 gm/ Sodium Chloride IVPB 200 mls/hr Q6H-IV SUE Administration Metoprolol Tartrate 5 mg 04/22/17 01:41 04/25/17 10:19 Lopressor Injection - IVPUSH 5 mg Q4H PRN Administration HYPERTENSION Morphine Sulfate 1 mg 04/22/17 13:31 04/25/17 06:39 Morphine Injection - IVPUSH 1 mg Q6H PRN Administration PAIN LEVEL 6-10 Ramipril 2.5 mg 04/22/17 10:00 04/24/17 09:34 Altace - PO 2.5 mg DAILY SUE Administration Warfarin Sodium 4 mg 04/23/17 18:00 04/24/17 17:57 Coumadin - PO 4 mg DAILY@1800 SUE Administration ASSESSMENT/PLAN: 86 y/o M with PMH afib (on coumadin), HTN, HLD, recent diagnosis of lung CA ( by Dr. Apodaca) admitted for malaise and weakness 2/2 metastatic lung cancer. #Weakness: likely 2/2 metastatic lung CA, r/o brain and spine mets -Brain MRI wasn't able to be performed due to family not knowing type of stents patient has -family refused CT brain without contrast after attempt to inform them of the risks/benefits -consult Dr. Silva appreciated -Neuro Consult- Dr. Cook appreciated -Speech and swallow consult for modified barium swallow appreciated - dysphagia (minced) with ensures, lift head of bed, small bites, chin tuck/down, safe rate , 1/2 tsp. at a time, elevate HOB during feed -Patient will likely be d/c to [place] for hospice/comfort care #Acute hypoxic respiratory failure 2/2 pneumonia: improving -ABG normal -Continue on nasal cannula 2 liters -continue unasyn #Atrial fibrillation with supratherapeutic INR (on admission 9.42): 1.27 -start coumadin 4mg PO QD -repeat INR in AM -Lopressor 5mg IVP q4h PRN rate control if HR >110 -Cardio consult appreciated #Hypertension: controlled -Continue ramipril 2.5mg daily #Hyperlipidemia -Continue lipitor 20mg PO HS #Prophylaxis DVT: supratherapeutic INR, SCD's #FEN Not on standing fluids Replete lytes in AM Sodium controlled diet #Disposition -Continue to monitor on Tele -possible DC to [facility] DNR/DNI Visit type - Emergency Visit Emergency Visit: No - New Patient This patient is new to me today: No - Critical Care Critical Care patient: No <Joanne Caldera - Last Filed: 04/25/17 18:10> Physical Exam: Patient seen and examined. Patient will try to arrange for [place], patient is on comfort care. RLL Pneumonia on IV antibiotic continue. Afib with RVR with rate not controlled with subtherapeutic INR 1.27 , will increase the coumadin to 5mg tonight.
--- NOTE | 2017-04-25 12:04 | PN ---
Progress Note, Physician Chief Complaint: still sob weak tele af rvr History of Present Illness: 86 y/o M with PMH afib (on coumadin), HTN, HLD, stage 4 lung CA came to the ED with weakness over the last three weeks. During this time, pt had a fourteen pound weight loss and decreased appetite. More recently, over the last two days , dizziness, SOB, intermittent productive cough (yellow sputum, without blood), increased urinary frequency with decreased void volume, brown-red urine and back pain. Denies [place], fever, night sweats, chills, chest pain, or changes in bowel function. still with RVR. Awaiting [place] placement. - Current Medication List Current Medications: Active Medications Aspirin (Ecotrin -) 81 mg PO DAILY [facility] Last Admin: 04/24/17 09:34 Dose: 81 mg Atorvastatin Calcium (Lipitor -) 20 mg PO HS [facility] Last Admin: 04/24/17 22:01 Dose: 20 mg Folic Acid (Folic Acid -) 1 mg PO DAILY [facility] Last Admin: 04/24/17 09:34 Dose: 1 mg Sodium Chloride (Normal Saline -) 1,000 mls @ 75 mls/hr IV ASDIR [facility] Last Admin: 04/25/17 03:03 Dose: 75 mls/hr Ampicillin Sodium/Sulbactam (Sodium 1.5 gm/ Sodium Chloride) 100 mls @ 200 mls/ hr IVPB Q6H-IV [facility] Last Admin: 04/25/17 10:19 Dose: 200 mls/hr Metoprolol Tartrate (Lopressor Injection -) 5 mg IVPUSH Q4H PRN PRN Reason: HYPERTENSION Last Admin: 04/25/17 10:19 Dose: 5 mg Morphine Sulfate (Morphine Injection -) 1 mg IVPUSH Q6H PRN PRN Reason: PAIN LEVEL 6-10 Last Admin: 04/25/17 06:39 Dose: 1 mg Ramipril (Altace -) 2.5 mg PO DAILY [facility] Last Admin: 04/24/17 09:34 Dose: 2.5 mg Warfarin Sodium (Coumadin -) 4 mg PO DAILY@1800 [facility] Last Admin: 04/24/17 17:57 Dose: 4 mg - Objective Vital Signs: Vital Signs Temperature 97.8 F 04/25/17 10:00 Pulse Rate 145 H 04/25/17 10:19 Respiratory Rate 24 04/25/17 10:00 Blood Pressure 116/70 04/25/17 10:19 O2 Sat by Pulse Oximetry (%) 94 L 04/25/17 09:00 Constitutional: Yes: Calm Eyes: Yes: EOM Intact HENT: Yes: Atraumatic, Normocephalic Neck: Yes: Trachea Midline Cardiovascular: Yes: Tachycardia, Pulse Irregular Respiratory: Yes: Rhonchi (bilat) Gastrointestinal: Yes: Normal Bowel Sounds, Soft Musculoskeletal: Yes: Muscle Weakness Extremities: Yes: WNL Edema: No Peripheral Pulses WNL: Yes Labs: CBC, BMP 04/25/17 06:15 04/25/17 06:15 INR, PTT INR 1.27 (0.82-1.09) H D 04/25/17 06:15 Fibrinogen 351.0 mg/dL (238-498) 04/23/17 05:41 Problem List - Problems (1) Afib Assessment/Plan: Increased heart rate due to his pulm status. Increase metoprolol as tolerated by bp and hr. continue coumadin. Overall prognosis remains poor. conservative cardiac care. Atrial fibrillation is not the determinant of his prognosis or symptoms at this point. will see prn. Call us with questions. Awaiting [facility] placement. Code(s): I48.91 - UNSPECIFIED ATRIAL FIBRILLATION Qualifiers: Atrial fibrillation type: chronic Qualified Code(s): I48.2 - Chronic atrial fibrillation
[2017-04-25] MEDS: WARFARIN NA 2 MG TABLET (UD) PO SCH (17:58)
[2017-04-25] MEDS: FOLIC ACID 1 MG TABLET (FP) PO SCH (17:59)
[2017-04-25] MEDS: ASPIRIN COATED 81 MG TABLET.EC PO SCH (17:59)
[2017-04-25] MEDS: RAMIPRIL 2.5 MG CAPSULE (FP) PO SCH (17:59)
[2017-04-25] MEDS ORDERED: WARFARIN NA 1 MG TABLET (FP) PO ONE ×2 (18:10→21:45)
[2017-04-25] MEDS: ATORVASTATIN CA 20 MG TABLET (FP) PO SCH (21:40)
[2017-04-26] MEDS: AMPICILLIN NA/SULBACTAM NA 1.5 GM in SODIUM CHLORIDE 100 ML IVPB SCH ×3 (03:22→15:33)
[2017-04-26] MEDS: MORPHINE SULFATE 10 MG/1 ML *VIAL IVPUSH PRN ×4 (03:22→16:37)
[2017-04-26 06:53] LABS: INR 1.33 (0.82-1.09)
[2017-04-26] MEDS: SODIUM CHLORIDE 1,000 ML IV SCH (08:01)
[2017-04-26] MEDS: ASPIRIN COATED 81 MG TABLET.EC PO SCH (10:30)
[2017-04-26] MEDS: RAMIPRIL 2.5 MG CAPSULE (FP) PO SCH (10:30)
[2017-04-26] MEDS: FOLIC ACID 1 MG TABLET (FP) PO SCH (10:30)
[2017-04-26] MEDS: METOPROLOL TARTRATE 5 MG/5 ML VIAL IVPUSH PRN ×2 (10:48→17:49)
[2017-04-26] MEDS ORDERED: MORPHINE SULFATE 10 MG/1 ML *VIAL IVPUSH PRN (11:08)
--- NOTE | 2017-04-26 12:46 | PN ---
<Philip Khan - Last Filed: 04/26/17 12:46> Physical Exam: SUBJECTIVE: Patient seen and examined at bedside. No acute overnight events. Patient states that he is in mild pain and is requesting morphine. OBJECTIVE: Vital Signs Period Temp Pulse Resp BP Sys/Roach Pulse Ox Last 24 Hr 97.3 F-98.6 F 126-150 20-24 112-126/58-90 92-93 GENERAL: The patient is awake, alert, and fully oriented, in no acute distress. HEAD: Normal with no signs of trauma. NECK: Trachea midline, full range of motion, supple. Large R-sided supraclavicular lymph node/mass palpated on exam. LUNGS: Breath sounds equal, minimal bibasilar crackles noted on exam HEART: tachycardic and irregular in rhythm, normal S1, S2 without murmur, rub or gallop. ABDOMEN: RUQ firm on palpation, nontender, bowel sounds present EXTREMITIES: 2+ pulses, warm, well-perfused, no edema. NEUROLOGICAL: Cranial nerves II through XII grossly intact. Normal speech, gait not observed. PSYCH: Normal mood, normal affect. SKIN: Warm, dry, normal turgor, no rashes or lesions noted Laboratory Results - last 24 hr 04/26/17 05:35 PT with INR 15.00 H INR 1.33 H Active Medications Generic Name Dose Route Start Last Admin Trade Name Freq PRN Reason Stop Dose Admin Aspirin 81 mg 04/22/17 10:00 04/26/17 10:30 Ecotrin - PO Not Given DAILY SUE Atorvastatin Calcium 20 mg 04/22/17 22:00 04/25/17 21:40 Lipitor - PO 20 mg HS SUE Administration Folic Acid 1 mg 04/22/17 10:00 04/26/17 10:30 Folic Acid - PO Not Given DAILY SUE Sodium Chloride 1,000 mls @ 75 mls/hr 04/22/17 01:30 04/26/17 08:01 Normal Saline - IV 75 mls/hr ASDIR SUE Administration Ampicillin Sodium/Sulbactam 100 mls @ 200 mls/hr 04/22/17 15:00 04/26/17 09: 19 Sodium 1.5 gm/ Sodium Chloride IVPB 200 mls/hr Q6H-IV SUE Administration Metoprolol Tartrate 5 mg 04/22/17 01:41 04/26/17 10:48 Lopressor Injection - IVPUSH 5 mg Q4H PRN Administration HYPERTENSION Morphine Sulfate 1 mg 04/26/17 11:08 04/26/17 11:56 Morphine Injection - IVPUSH 1 mg Q3H PRN Administration PAIN LEVEL 6-10 Ramipril 2.5 mg 04/22/17 10:00 04/26/17 10:30 Altace - PO Not Given DAILY [facility] Warfarin Sodium 4 mg 04/23/17 18:00 04/25/17 17:58 Coumadin - PO 4 mg DAILY@1800 [facility] Administration ASSESSMENT/PLAN: 86 y/o M with PMH afib (on coumadin), HTN, HLD, recent diagnosis of lung CA ( by Dr. Apodaca) admitted for malaise and weakness 2/2 metastatic lung cancer. #Weakness: likely 2/2 metastatic lung CA, r/o brain and spine mets -Brain MRI wasn't able to be performed due to family not knowing type of stents patient has -family refused CT brain without contrast after attempt to inform them of the risks/benefits -Speech and swallow consult for modified barium swallow appreciated - dysphagia (minced) with ensures, lift head of bed, small bites, chin tuck/down, safe rate , 1/2 tsp. at a time, elevate HOB during feed -Patient will likely be d/c to [place] for hospice/comfort care -morphine 1mg Q3h PRN pain #Acute hypoxic respiratory failure 2/2 pneumonia: improving -ABG normal -Continue on nasal cannula 2 liters -continue unasyn #Atrial fibrillation with supratherapeutic INR (on admission 9.42): 1.33 -start coumadin 4mg PO QD -repeat INR in AM -Lopressor 5mg IVP q4h PRN rate control if HR >110 -Cardio consult appreciated #Hypertension: controlled -Continue ramipril 2.5mg daily #Hyperlipidemia -Continue lipitor 20mg PO HS #Prophylaxis DVT: supratherapeutic INR, SCD's #FEN Not on standing fluids Replete lytes in AM Sodium controlled diet #Disposition -Continue to monitor on Tele [facility]NR/DNI Visit type - Emergency Visit Emergency Visit: No - New Patient This patient is new to me today: No - Critical Care Critical Care patient: No <Joanne Caldera - Last Filed: 04/26/17 14:17> Physical Exam: Patient is not able to swallow. discontinued Coumadin and placed the patient on Lovenox 40mg sq bid, also increased the dose of Morphine to 2mg IV q2h as per family requesting comfort measures, Also discussed with Emily the palliative care nurse regarding his comfort and pin.
[2017-04-26] MEDS ORDERED: PT OWN MED DRAWER 7, Y5N ONE (14:17)
--- NOTE | 2017-04-26 15:00 | DS ---
Physical Exam: SUBJECTIVE: Patient seen and examined at bedside. No acute overnight events. Patient states that he is in mild pain and is requesting morphine. OBJECTIVE: Vital Signs Period Temp Pulse Resp BP Sys/Roach Pulse Ox Last 24 Hr 97.4 F-98.6 F 126-150 20-24 104-126/58-90 92-93 PHYSICAL EXAM GENERAL: The patient is awake, alert, and fully oriented, in no acute distress. HEAD: Normal with no signs of trauma. NECK: Trachea midline, full range of motion, supple. Large R-sided supraclavicular mass palpated on exam, likely lymph node LUNGS: Breath sounds equal, minimal bibasilar crackles noted on exam HEART: tachycardic and irregular in rhythm, normal S1, S2 without murmur, rub or gallop. ABDOMEN: RUQ firm on palpation, nontender, bowel sounds present EXTREMITIES: 2+ pulses, warm, well-perfused, no edema. NEUROLOGICAL: Cranial nerves II through XII grossly intact. Normal speech, gait not observed. PSYCH: Normal mood, normal affect. SKIN: Warm, dry, normal turgor, no rashes or lesions noted LABS Laboratory Results - last 24 hr 04/26/17 05:35 PT with INR 15.00 H INR 1.33 H CBC, BMP 04/25/17 06:15 04/25/17 06:15 Home Medication List Medication Instructions Recorded Confirmed Type Aspirin [Aspirin EC] 81 mg PO DAILY 10/13/14 10/14/14 History Atorvastatin Ca [Lipitor] 20 mg PO HS 10/13/14 10/14/14 History Folic Acid - 1 mg PO DAILY 10/13/14 10/14/14 History Ramipril [Altace] 2.5 mg PO DAILY 10/13/14 10/14/14 History Nabumetone [Relafen -] 750 mg PO DAILY 10/14/14 10/14/14 History Active Medications Generic Name Dose Route Start Last Admin Trade Name Freq PRN Reason Stop Dose Admin Aspirin 81 mg 04/22/17 10:00 04/26/17 10:30 Ecotrin - PO Not Given DAILY SUE Atorvastatin Calcium 20 mg 04/22/17 22:00 04/25/17 21:40 Lipitor - PO 20 mg HS [facility] Administration Enoxaparin Sodium 40 mg 04/26/17 22:00 Lovenox - SQ BID SUE Folic Acid 1 mg 04/22/17 10:00 04/26/17 10:30 Folic Acid - PO Not Given DAILY SUE Sodium Chloride 1,000 mls @ 75 mls/hr 04/22/17 01:30 04/26/17 08:01 Normal Saline - IV 75 mls/hr ASDIR SUE Administration Ampicillin Sodium/Sulbactam 100 mls @ 200 mls/hr 04/22/17 15:00 04/26/17 09: 19 Sodium 1.5 gm/ Sodium Chloride IVPB 200 mls/hr Q6H-IV SUE Administration Metoprolol Tartrate 5 mg 04/22/17 01:41 04/26/17 10:48 Lopressor Injection - IVPUSH 5 mg Q4H PRN Administration HYPERTENSION Morphine Sulfate 2 mg 04/26/17 14:05 04/26/17 14:27 Morphine Injection - IVPUSH 2 mg Q2H PRN Administration PAIN LEVEL 6-10 Ramipril 2.5 mg 04/22/17 10:00 04/26/17 10:30 Altace - PO Not Given DAILY SUE HOSPITAL COURSE: Date of Admission:04/22/17 86 year old male with a past medical history of atrial fibrillation (on coumadin ), hypertension, hyperlipidemia, and a recent diagnosis stage 4 lung CA (by Dr. Apodaca) presented to the ED with gradually worsening weakness over the last three weeks. As per pt's son, starting on March 30, pt told him that he was not feeling well after he went to the bank. He had decreased energy and weakness in his upper and lower extremities, and started to have difficulty while ambulating with his walker. During this time, the patient had a fourteen pound weight loss and decreased appetite. More recently, over the last two days , pt endorsed dizziness, SOB, intermittent productive cough (yellow sputum, without blood), increased urinary frequency with decreased void volume, brown- red urine and back pain. Patient was diagnosed with stage 4, metastatic lung cancer last week by Dr. Apodaca. He had not had a biopsy and does not follow with a route inspector or oncologist. Over the course of the hospital stay, the patient and family were reluctant to do any imaging tests. Patient deteriorated clinically while in the hospital and began to have generalized pain. In the hospital, he also had suspicion of pneumonia and was treated with antibiotics. Patient was given morphine 1mg every 3 hours for pain. It was decided that due to patient's deteriorating status, per patient's family they wanted him comfortable and placed in hospice. It was arranged that patient be transferred to [place] for hospice care. Date of Discharge: 04/26/17 Minutes to complete discharge: 35 <Philip Khan - Last Filed: 04/26/17 15:05> Physical Exam: Patient seen and examined, patient is being discharged to [place] for hospice care. Vital Signs Temperature 96.8 F L 04/26/17 17:00 Pulse Rate 142 H 04/26/17 17:49 Respiratory Rate 22 04/26/17 17:00 Blood Pressure 112/71 04/26/17 17:49 O2 Sat by Pulse Oximetry (%) 92 L 04/26/17 09:00 CBCD WBC 13.9 K/mm3 (4.0-10.0) H 04/25/17 06:15 RBC 3.61 M/mm3 (4.00-5.60) L 04/25/17 06:15 Hgb 12.2 GM/dL (11.7-16.9) 04/25/17 06:15 Hct 37.5 % (35.4-49) 04/25/17 06:15 MCV 103.9 fl (80-96) H 04/25/17 06:15 MCHC 32.4 g/dl (32.0-35.9) 04/25/17 06:15 RDW 16.2 % (11.9-15.9) H 04/25/17 06:15 Plt Count 68 K/MM3 (134-434) L D 04/25/17 06:15 MPV 9.5 fl (7.5-11.1) 04/25/17 06:15 CMP Sodium 146 mmol/L (136-145) H 04/25/17 06:15 Potassium 4.4 mmol/L (3.5-5.1) 04/25/17 06:15 Chloride 113 mmol/L (98-107) H D 04/25/17 06:15 Carbon Dioxide 18 mmol/L (21-32) L D 04/25/17 06:15 Anion Gap 15 (8-16) 04/25/17 06:15 BUN 57 mg/dL (7-18) H 04/25/17 06:15 Creatinine 0.6 mg/dL (0.7-1.3) L D 04/25/17 06:15 Creat Clearance w eGFR > 60 (>60) 04/25/17 06:15 Random Glucose 73 mg/dL (74-106) L D 04/25/17 06:15 Calcium 9.1 mg/dL (8.5-10.1) 04/25/17 06:15 Total Bilirubin 6.3 mg/dL (0.2-1.0) H 04/25/17 06:15 AST 419 U/L (15-37) H D 04/25/17 06:15 ALT 270 U/L (12-78) H 04/25/17 06:15 Alkaline Phosphatase 748 U/L (45-117) H D 04/25/17 06:15 Total Protein 5.4 g/dl (6.4-8.2) L 04/25/17 06:15 Albumin 2.3 g/dl (3.4-5.0) L D 04/25/17 06:15 CARDIAC ENZYMES Creatine Kinase 449 IU/L (39-308) H 04/23/17 05:41 Troponin I 0.02 ng/ml (0.00-0.05) D 04/22/17 07:10 Home Medications Medication Instructions Recorded Aspirin [Aspirin EC] 81 mg PO DAILY 10/13/14 Atorvastatin Ca [Lipitor] 20 mg PO HS 10/13/14 Folic Acid - 1 mg PO DAILY 10/13/14 Ramipril [Altace] 2.5 mg PO DAILY 10/13/14 Nabumetone [Relafen -] 750 mg PO DAILY 10/14/14 Acetaminophen [Tylenol .Regular 650 mg PO Q6H PRN #0 tablet 10/16/14 Strength -] Enoxaparin [Lovenox -] 40 mg SQ BID disp.syrin 04/26/17 Metoprolol Tartrate Injection 5 mg IVPUSH Q4H PRN vial 04/26/17 [Lopressor Injection -] Morphine Injection - [Morphine 10 2 mg IVPUSH Q2H PRN ml MDD 24 04/26/17 mg/1 mL Injection -] <Joanne Caldera - Last Filed: 04/26/17 18:13> Discharge Summary Reason For Visit: PRIMARY MALIGNANT NEOPLASM OF LUNG Current Active Problems Afib (Acute) Lung cancer, primary, with metastasis from lung to other site (Acute) Pneumonia (Acute) - Home Medications Comprehensive Discharge Medication List: Ambulatory Orders Aspirin [Aspirin EC] 81 mg PO DAILY 10/13/14 Atorvastatin Ca [Lipitor] 20 mg PO HS 10/13/14 Folic Acid - 1 mg PO DAILY 10/13/14 Ramipril [Altace] 2.5 mg PO DAILY 10/13/14 Nabumetone [Relafen -] 750 mg PO DAILY 10/14/14 Acetaminophen [Tylenol .Regular Strength -] 650 mg PO Q6H PRN #0 tablet Warfarin Sodium [Coumadin] 5 mg PO HS 30 Days tablet 10/16/14 Metoprolol Tartrate Injection [Lopressor Injection -] 5 mg IVPUSH Q4H PRN vial 04/26/17 Morphine Injection - [Morphine 10 mg/1 mL Injection -] 1 mg IVPUSH Q3H PRN ml MDD 8 04/26/17 <Philip Khan - Last Filed: 04/26/17 15:05> - Home Medications Comprehensive Discharge Medication List: Ambulatory Orders Aspirin [Aspirin EC] 81 mg PO DAILY 10/13/14 Atorvastatin Ca [Lipitor] 20 mg PO HS 10/13/14 Folic Acid - 1 mg PO DAILY 10/13/14 Ramipril [Altace] 2.5 mg PO DAILY 10/13/14 Nabumetone [Relafen -] 750 mg PO DAILY 10/14/14 Acetaminophen [Tylenol .Regular Strength -] 650 mg PO Q6H PRN #0 tablet Enoxaparin [Lovenox -] 40 mg SQ BID disp.syrin 04/26/17 Metoprolol Tartrate Injection [Lopressor Injection -] 5 mg IVPUSH Q4H PRN vial 04/26/17 Morphine Injection - [Morphine 10 mg/1 mL Injection -] 2 mg IVPUSH Q2H PRN ml MDD 24 04/26/17 <Joanne Caldera - Last Filed: 04/26/17 18:13> Condition: Stable - Instructions Diet, Activity, Other Instructions: You were admitted to the hospital for the treatment of weakness and poor oral intake likely due to metastatic lung cancer. Medical Recommendations: You will be discharged to [place] for comfort care. Make sure to eat a diet supplemented with Ensure to maintain appropriate protein intake. Continue your home medications as prescribed. Referrals: Stanton Apodaca MD [Primary Care Provider] - Disposition: TRANSFER ACUTE CARE/OTHER HOSP This patient is new to me today: No Emergency Visit: No Critical Care patient: No - Discharge Referral Referred to [facility] No <Philip Khan - Last Filed: 04/26/17 15:05>
[2017-04-26 17:03] VITALS: TEMP 96.8
[2017-04-26 17:52] VITALS: BP 112/71; PULSE 142
[2017-04-26] MEDS ORDERED: ENOXAPARIN NA (PORCINE) 40 MG/0.4 ML DISP.SYRIN SQ SCH (22:00)
== END 2017-04-26 18:04 | disposition hospice, inpatient (51) | DRG 180 ==
LOC: JER 19:42 → JERBED 04-22 00:03 → J4S 04-22 02:51
PROVIDERS: ADMIT Internal Medicine; ATTEND Internal Medicine
DX: C34.90 Malignant neoplasm of unspecified part of unspecified bronchus or lung (principal); J96.01 Acute respiratory failure with hypoxia; A41.9 Sepsis, unspecified organism; J18.9 Pneumonia, unspecified organism; R64 Cachexia; D68.9 Coagulation defect, unspecified; R79.1 Abnormal coagulation profile; I10 Essential (primary) hypertension; E78.5 Hyperlipidemia, unspecified; R53.1 Weakness; I48.2 Chronic atrial fibrillation; Z68.20 Body mass index [BMI] 20.0-20.9, adult; R74.0 Nonspecific elevation of levels of transaminase and lactic acid dehydrogenase [LDH]; D69.6 Thrombocytopenia, unspecified
CPT/HCPCS: 36415; 36600; 71045-TC; 74230-TC-FY; 80048; 80053; 81003; 82550; 82553; 82607; 82746; 82803; 83605; 83735; 84443; 84484; 85025; 85027; 85384; 85610; 87040; 87086; 87804; 92611-GN; 93005; 93010; 93306-TC; 94761; 97116-GP; 97161-GP; 99283-25